=== PATIENT | female | born 1980 | race Caucasian/White ===

== ENCOUNTER 2017-07-07 16:31 | Inpatient (IN) ==
[2017-07-07] MEDS ORDERED: 0.9 % Sodium Chloride 1,000 ML IVC ONE (16:46)
[2017-07-07] MEDS ORDERED: Ketorolac 30 MG/ML VIAL IVP ONE (16:46)
[2017-07-07] MEDS ORDERED: Ondansetron 4 MG/2 ML VIAL IVP ONE (16:46)
--- NOTE | 2017-07-07 16:46 | Emergency Department Note ---
Disposition Clinical Impression: Biliary sludge, Abdominal pain, Transaminitis, Elevated bilirubin Disposition: Admitted As Inpatient Condition: Good Referrals: NONE,PCP [Primary Care Provider] - Forms: ED Satisfaction Letter, Work/School Release General Adult HPI - General Chief complaint: ED Abdominal Pain Stated complaint: abd pain,constipation,fever Time Seen by Provider: 07/07/17 16:40 Source: patient Limitations: no limitations - History of Present Illness Pain Scale: 6 - Related Data Allergies Allergy/AdvReac Type Severity Reaction Status Date / Time No Known Allergies Allergy Verified 07/07/17 16:39 Past Medical History - Past Medical History Medical history: Reports: hypertension, other - Social History Smoking Status: Current every day smoker Alcohol use: Reports: none Drug use: Reports: none Physical Exam - General Limitations: no limitations General appearance: in no apparent distress Course Vital Signs Temperature 98 F 07/07/17 16:37 Pulse Rate 130 07/07/17 16:37 Respiratory Rate 18 07/07/17 16:37 Blood Pressure 107/59 07/07/17 16:37 O2 Sat by Pulse Oximetry 95 07/07/17 16:37 Temperature 98 F 07/07/17 16:37 Pulse Rate 100 07/07/17 17:24 Respiratory Rate 20 07/07/17 17:24 Blood Pressure 107/71 07/07/17 17:24 O2 Sat by Pulse Oximetry 99 07/07/17 17:24 Oxygen Delivery Oxygen Delivery Room Air Medical Decision Making - Lab Data Result diagrams: 07/07/17 17:09 07/07/17 17:09 Lab Results 07/07/17 07/07/17 07/07/17 Range/Units 17:09 17:09 17:09 WBC 12.7 H (4.3-11.1) K/mcL RBC 2.99 L (3.82-4.97) M/mcL Hgb 10.8 L (11.5-15.4) g/dL Hct 32.1 L (35.3-44.9) % MCV 107.4 H (83.0-100.0) fL MCH 36.1 H (28.0-33.3) pg MCHC 33.6 (31.6-35.5) g/dL RDW 14.7 H (11.5-14.5) % Plt Count 350 (140-400) K/mcL MPV 10.3 (9.4-12.4) fL Immature Gran % 0.6 (0-4) % Seg Neutrophils % 73.0 % Lymphocytes % 18.5 % Monocytes % 7.4 % Eosinophils % 0.0 % Basophils % 0.5 % Neutrophils # 9.2 H (1.6-8.9) K/mcL Lymphocytes # 2.4 (0.6-4.6) K/mcL Monocytes # 0.9 (0.0-1.3) K/mcL Eosinophils # 0.0 (0.0-0.6) K/mcL Basophils # 0.1 (0.0-0.2) K/mcL Sodium 137 (136-145) mEq/L Potassium 4.4 (3.5-4.5) mEq/L Chloride 102 (98-109) mEq/L Carbon Dioxide 20 (19-29) mEq/L BUN 4 L (7-20) mg/dL Creatinine 0.63 (0.57-1.11) mg/dL Est GFR ( Amer) > 60 (> 60) Est GFR (Non-Af Amer) > 60 (> 60) BUN/Creatinine Ratio 6 (6-26) Glucose 137 H (70-99) mg/dL Calculated Osmolality 283 (280-300) Calcium 8.1 L (8.6-10.8) mg/dL Total Bilirubin 3.0 H (0.2-1.2) mg/dL Direct Bilirubin 1.6 H (0.0-0.5) mg/dL Indirect Bilirubin 1.4 H (0.0-1.2) mg/dL AST 236 H (5-34) Units/L ALT 31 (0-55) Units/L Alkaline Phosphatase 196 H (38-126) Units/L Serum Total Protein 7.9 (6.0-8.3) g/dL Albumin 2.4 L (3.5-5.0) g/dL Globulin 5.5 H (2.4-3.5) g/dL Albumin/Globulin Ratio 0.4 L (1.1-2.2) Lipase 23 (8-78) Units/L Beta HCG, Quant (0-4) mIU/ml Serum , Qual Negative (Negative) 07/07/17 Range/Units 17:09 WBC (4.3-11.1) K/mcL RBC (3.82-4.97) M/mcL Hgb (11.5-15.4) g/dL Hct (35.3-44.9) % MCV (83.0-100.0) fL MCH (28.0-33.3) pg MCHC (31.6-35.5) g/dL RDW (11.5-14.5) % Plt Count (140-400) K/mcL MPV (9.4-12.4) fL Immature Gran % (0-4) % Seg Neutrophils % % Lymphocytes % % Monocytes % % Eosinophils % % Basophils % % Neutrophils # (1.6-8.9) K/mcL Lymphocytes # (0.6-4.6) K/mcL Monocytes # (0.0-1.3) K/mcL Eosinophils # (0.0-0.6) K/mcL Basophils # (0.0-0.2) K/mcL Sodium (136-145) mEq/L Potassium (3.5-4.5) mEq/L Chloride (98-109) mEq/L Carbon Dioxide (19-29) mEq/L BUN (7-20) mg/dL Creatinine (0.57-1.11) mg/dL Est GFR ( Amer) (> 60) Est GFR (Non-Af Amer) (> 60) BUN/Creatinine Ratio (6-26) Glucose (70-99) mg/dL Calculated Osmolality (280-300) Calcium (8.6-10.8) mg/dL Total Bilirubin (0.2-1.2) mg/dL Direct Bilirubin (0.0-0.5) mg/dL Indirect Bilirubin (0.0-1.2) mg/dL AST (5-34) Units/L ALT (0-55) Units/L Alkaline Phosphatase (38-126) Units/L Serum Total Protein (6.0-8.3) g/dL Albumin (3.5-5.0) g/dL Globulin (2.4-3.5) g/dL Albumin/Globulin Ratio (1.1-2.2) Lipase (8-78) Units/L Beta HCG, Quant < 1 (0-4) mIU/ml Serum , Qual (Negative) Attestation Statement - Attestation Attestation: I examined this patient and my medical decision-making was reviewed with the Resident Physician. I agree with the documented findings, disposition and treatment plan as described except to the extent set forth below. [id number] time provided Patient complains of generalized abdominal pain. States she has not had a significant bowel movement "for months." Has tried [id number] remedies without relief. Seen in conjunction with Dr. Alfonso 19:36: Labs, CT image reviewed by me. Plan discussed by me with the resident physician. Call was placed to both the on-call surgeon and on-call GI covering physician. Patient to be admitted to the medicine service. The patient did attempt to leave to the emergency department to smoke. We told her this is not acceptable and she then returned to her room verbally upset
--- NOTE | 2017-07-07 16:56 | Emergency Department Note ---
Disposition Clinical Impression: Biliary sludge, Transaminitis, Elevated bilirubin Abdominal pain Qualifiers: Abdominal location: generalized Qualified Code(s): R10.84 - Generalized abdominal pain Disposition: Admitted As Inpatient Condition: Good Referrals: NONE,PCP [Primary Care Provider] - Forms: ED Satisfaction Letter, Work/School Release Abdominal Pain HPI - General Chief Complaint: ED Abdominal Pain Stated Complaint: abd pain,constipation,fever Time Seen by Provider: 07/07/17 16:40 Source: patient Mode of arrival: private vehicle Limitations: no limitations Nursing Notes Reviewed: Yes Vital Signs Reviewed: Yes - History of Present Illness HPI Narrative: 37-year-old female no reported history with a prior surgical history of umbilical hernia repair 17 years ago who presents to the ER due to abdominal pain and constipation. Patient states at first episode with her urine so she started taking cramping chills. She states that she has not had a normal bowel movement for the last 3-4 months and just has luisa when she defecates. She states that she became concerned was her gallbladder so she started drinking lemon water. This however did not help her symptoms and she continued to have abdominal pain. She denies any medical conditions, does not take any medications daily. Does not follow regularly with a primary care provider. Denies dysuria or hematuria. No history of bowel obstruction. No history of constipation. No other complaints. Pt Subjective Complaint: abdominal pain Onset (ago): month(s) Consistency: intermittent Location: diffuse Pain Severity: moderate Pain Scale: 6 Quality: aching Radiation: none Migration to: no migration Improves with: nothing Worsens with: nothing Associated symptoms: Reports: nausea, constipation. Denies: vomiting, diarrhea , dysuria Treatments prior to arrival: none - Related Data Allergies Allergy/AdvReac Type Severity Reaction Status Date / Time No Known Allergies Allergy Verified 07/07/17 16:39 All systems ED: reviewed and negative except as stated. Constitutional: Denies: fever Cardiovascular: Denies: chest pain Respiratory: Denies: dyspnea Gastrointestinal: Reports: abdominal pain, nausea, constipation. Denies: vomiting, diarrhea Musculoskeletal: Reports: back pain Abdominal Pain PMH - Past Medical History Medical history: Reports: hypertension, other Female Surgical History: Reports: , herniorrhaphy - Social History Smoking status: Current every day smoker Alcohol use: Reports: none Drug use: Reports: none Physical Exam - General Limitations: no limitations General appearance: alert, in no apparent distress - Head Head exam: atraumatic, normocephalic, normal inspection - Eye Eye exam: Present: normal appearance, EOMI - ENT ENT exam: normal exam - Neck Neck exam: Present: normal inspection, full ROM - Chest Chest inspection: Present: normal inspection, symmetric chest wall rise - Respiratory Respiratory exam: Present: normal lung sounds bilaterally - Cardiovascular Cardiovascular exam: Present: normal rhythm, tachycardia, normal heart sounds - Abdominal Exam Abdominal exam: Present: soft, distention (Patient has a moderately distended abdomen on exam. Nonrigid, no guarding.) - Extremities Exam Extremities exam: Present: normal inspection, full ROM - Expanded Upper Extremity Exam Shoulder exam: Present: normal inspection, full ROM Arm exam: Present: normal inspection, full ROM Elbow exam: Present: normal inspection, full ROM Forearm/Wrist exam: Present: normal inspection, full ROM Hand exam: Present: normal inspection, full ROM - Expanded Lower Extremity Exam Hip/Pelvis exam: Present: normal inspection, full ROM Upper leg exam: Present: normal inspection, full ROM Knee exam: Present: normal inspection, full ROM Lower leg exam: Present: normal inspection, full ROM Ankle exam: Present: normal inspection, full ROM Foot/toe exam: Present: normal inspection, full ROM - Neurological Exam Neurological exam: Present: alert, other (GCS 15. Nonfocal neurologic exam.) - Psychiatric Psychiatric exam: Present: normal affect, normal mood - Skin Skin exam: Present: warm, dry, intact, normal color Course Course Narrative: Patient seen and examined. Vital signs reviewed. Tachycardic here. We will obtain a CT scan of the abdomen and pelvis as well as labs and urinalysis. Patient given IV fluids, antiemetics and analgesics. - Reevaluation(s) Reevaluation #1: Discussed results of imaging and labs with the patient. She is in agreement with being admitted to the hospital. Requests something else for pain at this time. - Consultations Consultation #1: I spoke with the on-call surgeon Dr. Wiggins. Discussed patient's history labs and imaging. He will see the patient in consultation and recommends admission to the hospitalist with GI consultation as well. Consultation #2: I spoke with the on-call physician covering gastroenterology Dr Infante. Discussed the patient's history exam imaging and labs. He will conveyed to the oncoming watch parts grinder for consultation tomorrow. Vital Signs Temperature 98 F 07/07/17 16:37 Pulse Rate 130 07/07/17 16:37 Respiratory Rate 18 07/07/17 16:37 Blood Pressure 107/59 07/07/17 16:37 O2 Sat by Pulse Oximetry 95 07/07/17 16:37 Temperature 98 F 07/07/17 16:37 Pulse Rate 100 07/07/17 17:24 Respiratory Rate 20 07/07/17 17:24 Blood Pressure 107/71 07/07/17 17:24 O2 Sat by Pulse Oximetry 99 07/07/17 17:24 Oxygen Delivery Oxygen Delivery Room Air Abdominal Pain - MDM Narrative Medical decision making narrative: 37-year-old female presents to the ER due to intermittent abdominal pain for 3 months. She is distended on exam without peritoneal features. Afebrile here. CT scan demonstrates a dilated gallbladder with thickened wall. Also appears to have some enteritis by CT read. Slight leukocytosis of 12.7. She has an elevated total bilirubin, direct and indirect as well as an elevated AST. This case was discussed with the on-call surgeon as well as the on-call watch parts grinder. Patient admitted to the hospitalist service with GI and surgery consultation. - Lab Data Lab results reviewed: Yes I reviewed the patient's lab results. Result diagrams: 07/07/17 17:09 07/07/17 17:09 Lab Results 07/07/17 07/07/17 07/07/17 Range/Units 17:09 17:09 17:09 WBC 12.7 H (4.3-11.1) K/mcL RBC 2.99 L (3.82-4.97) M/mcL Hgb 10.8 L (11.5-15.4) g/dL Hct 32.1 L (35.3-44.9) % MCV 107.4 H (83.0-100.0) fL MCH 36.1 H (28.0-33.3) pg MCHC 33.6 (31.6-35.5) g/dL RDW 14.7 H (11.5-14.5) % Plt Count 350 (140-400) K/mcL MPV 10.3 (9.4-12.4) fL Immature Gran % 0.6 (0-4) % Seg Neutrophils % 73.0 % Lymphocytes % 18.5 % Monocytes % 7.4 % Eosinophils % 0.0 % Basophils % 0.5 % Neutrophils # 9.2 H (1.6-8.9) K/mcL Lymphocytes # 2.4 (0.6-4.6) K/mcL Monocytes # 0.9 (0.0-1.3) K/mcL Eosinophils # 0.0 (0.0-0.6) K/mcL Basophils # 0.1 (0.0-0.2) K/mcL Sodium 137 (136-145) mEq/L Potassium 4.4 (3.5-4.5) mEq/L Chloride 102 (98-109) mEq/L Carbon Dioxide 20 (19-29) mEq/L BUN 4 L (7-20) mg/dL Creatinine 0.63 (0.57-1.11) mg/dL Est GFR ( Amer) > 60 (> 60) Est GFR (Non-Af Amer) > 60 (> 60) BUN/Creatinine Ratio 6 (6-26) Glucose 137 H (70-99) mg/dL Calculated Osmolality 283 (280-300) Calcium 8.1 L (8.6-10.8) mg/dL Total Bilirubin 3.0 H (0.2-1.2) mg/dL Direct Bilirubin 1.6 H (0.0-0.5) mg/dL Indirect Bilirubin 1.4 H (0.0-1.2) mg/dL AST 236 H (5-34) Units/L ALT 31 (0-55) Units/L Alkaline Phosphatase 196 H (38-126) Units/L Serum Total Protein 7.9 (6.0-8.3) g/dL Albumin 2.4 L (3.5-5.0) g/dL Globulin 5.5 H (2.4-3.5) g/dL Albumin/Globulin Ratio 0.4 L (1.1-2.2) Lipase 23 (8-78) Units/L Beta HCG, Quant (0-4) mIU/ml Serum , Qual Negative (Negative) 07/07/17 Range/Units 17:09 WBC (4.3-11.1) K/mcL RBC (3.82-4.97) M/mcL Hgb (11.5-15.4) g/dL Hct (35.3-44.9) % MCV (83.0-100.0) fL MCH (28.0-33.3) pg MCHC (31.6-35.5) g/dL RDW (11.5-14.5) % Plt Count (140-400) K/mcL MPV (9.4-12.4) fL Immature Gran % (0-4) % Seg Neutrophils % % Lymphocytes % % Monocytes % % Eosinophils % % Basophils % % Neutrophils # (1.6-8.9) K/mcL Lymphocytes # (0.6-4.6) K/mcL Monocytes # (0.0-1.3) K/mcL Eosinophils # (0.0-0.6) K/mcL Basophils # (0.0-0.2) K/mcL Sodium (136-145) mEq/L Potassium (3.5-4.5) mEq/L Chloride (98-109) mEq/L Carbon Dioxide (19-29) mEq/L BUN (7-20) mg/dL Creatinine (0.57-1.11) mg/dL Est GFR ( Amer) (> 60) Est GFR (Non-Af Amer) (> 60) BUN/Creatinine Ratio (6-26) Glucose (70-99) mg/dL Calculated Osmolality (280-300) Calcium (8.6-10.8) mg/dL Total Bilirubin (0.2-1.2) mg/dL Direct Bilirubin (0.0-0.5) mg/dL Indirect Bilirubin (0.0-1.2) mg/dL AST (5-34) Units/L ALT (0-55) Units/L Alkaline Phosphatase (38-126) Units/L Serum Total Protein (6.0-8.3) g/dL Albumin (3.5-5.0) g/dL Globulin (2.4-3.5) g/dL Albumin/Globulin Ratio (1.1-2.2) Lipase (8-78) Units/L Beta HCG, Quant < 1 (0-4) mIU/ml Serum , Qual (Negative) - Radiology Data Radiology results reviewed: Yes I reviewed the patient's radiology results. Abdomen/Pelvis CT 07/07/17 16:47 IMPRESSION: 1. Distended gallbladder with sludge and possible stones. Small volume of pericholecystic fluid versus gallbladder wall thickening. Stranding in the right upper quadrant. Findings raise the possibility of acute cholecystitis. Alternative etiologies include pancreatitis and duodenitis. Further evaluation could be obtained with right upper quadrant ultrasound. 2. Suspected circumferential wall thickening of the duodenum and proximal jejunum as can be seen with enteritis. 3. Marked hepatomegaly. 4. Small volume of likely physiologic free fluid in the pelvis. D/ / Pranav Villanueva MD / Pranav Villanueva MD Interpreting Provider: Pranav Villanueva MD arisela - Alfredo Situation: Demographics, MOA Background: Presenting Complaint, Relevant PMH, Meds, & Allergies Assessment: Vital Signs, Course and respsone to treatment, Exam Concerns, Patient/Family Expectation, Pertinant Lab Results, Outstanding Labs Recommendation: Barrier(s) to disposition, Recommendation based on pending studies, treatments, or consults SMarisela Report Given to: Patricia Fuentes Repor Time: 19:09
[2017-07-07 17:19] LABS: Basophils # 0.1 K/mcL (0.0-0.2); Basophils % 0.5 %; Hematocrit 32.1 % (35.3-44.9); Hemoglobin 10.8 g/dL (11.5-15.4); Immature Granulocytes % 0.6 % (0-4); Lymphocytes # 2.4 K/mcL (0.6-4.6); Lymphocytes % 18.5 %; Mean Corpuscular HGB Conc 33.6 g/dL (31.6-35.5); Mean Corpuscular Hemoglobin 36.1 pg (28.0-33.3); Mean Corpuscular Volume 107.4 fL (83.0-100.0); Mean Platelet Volume 10.3 fL (9.4-12.4); Monocytes # 0.9 K/mcL (0.0-1.3); Monocytes % 7.4 %; Neutrophils # 9.2 K/mcL (1.6-8.9); Platelet Count 350 K/mcL (140-400); Red Blood Count 2.99 M/mcL (3.82-4.97); Red Cell Distribution Width 14.7 % (11.5-14.5)
[2017-07-07 17:37] LABS: Alanine Aminotransferase 31 Units/L (0-55); Albumin 2.4 g/dL (3.5-5.0); Albumin/Globulin Ratio 0.4 (1.1-2.2); Alkaline Phosphatase 196 Units/L (38-126); BUN/Creatinine Ratio 6 (6-26); Bilirubin,Indirect 1.4 mg/dL (0.0-1.2); Calcium 8.1 mg/dL (8.6-10.8); Carbon Dioxide 20 mEq/L (19-29); Chloride 102 mEq/L (98-109); Globulin 5.5 g/dL (2.4-3.5); Glucose 137 mg/dL (70-99); Lipase 23 Units/L (8-78); Osmolality,Calculated 283 (280-300); Potassium 4.4 mEq/L (3.5-4.5); Total Protein 7.9 g/dL (6.0-8.3); eGFR For African Americans > 60 (> 60); eGFR For Non-African Americans > 60 (> 60)
[2017-07-07 17:41] LABS: Aspartate Amino Transferase 236 Units/L (5-34); Bilirubin,Direct 1.6 mg/dL (0.0-0.5); Blood Urea Nitrogen 4 mg/dL (7-20)
[2017-07-07 17:43] LABS: Sodium 137 mEq/L (136-145)
[2017-07-07] MEDS ORDERED: *HR* HYDROmorphone (PF) 1 MG/ML SYRINGE IVP ONE (18:42)
--- NOTE | 2017-07-07 21:34 | Internal Med History&Physical ---
Date of Encounter: 07/07/17 Time of Encounter: 21:34 Assessment and Plan (1) Sepsis Current visit: Yes Status: Acute Patient meets sepsis criteria with tachycardia, leukocytosis and imaging showing cholecystitis. Start IV fluid hydration Blood pressure lactic acid is within normal limits Ciprofloxacin and Flagyl Send blood cultures Source of sepsis is GI, gallbladder ultrasound Qualifiers: Sepsis type: sepsis due to unspecified organism Qualified Code(s): A41.9 - Sepsis, unspecified organism (2) Cholecystitis Current visit: Yes Status: Acute Obtain liver ultrasound stat Surgery has been consulted Gastroenterology has been consulted Continue ciprofloxacin and Flagyl Keep patient nothing by mouth Monitor the LFTs (3) Enteritis Current visit: Yes Status: Acute This is according to her CAT scan. Patient has no diarrhea. Continue to monitor (4) Dilated cbd, acquired Current visit: Yes Status: Acute Surgery and GI on board. (5) Hepatomegaly Current visit: Yes Status: Acute Obtain liver imaging. Send hepatitis panel. Patient has peripheral stigmata of alcoholism but denies history of alcohol abuse. (6) Tobacco abuse Current visit: Yes Status: Chronic Nicotine replacement therapy when necessary. (7) Macrocytic anemia Current visit: Yes Status: Chronic Possibly secondary to alcohol abuse. . Send anemia workup. Internal Medicine - H&P: HPI Chief complaint: Abdominal distention Admitted From: Home Plans for Post Hospital Care: Home History of present illness: Ms. Fuentes is a 37 year old female with medical history of prior alcoholism, tobacco abuse. Presented to the ER with a 1 year history of progressive abdominal distention, said to have started suddenly about a year ago and progressively worsened with associated early satiety, constipation, and difficulty in breathing. She also reports chronic abdominal pain due to the distention. 3 months ago, patient started to have persistent nausea and vomiting daily. She reports that she thought initially this was due to GERD, however [id number] medications did not help. She reports associated 30 pound weight loss in 1 year. She denies is fatigability, chest pain, she does have bowel movements, but they are mostly leg pain falls. She denies fever or chills. She states vomitus is mostly recessively ingested nails but recently in the past week vomitus has been bilious and projectile. She also noted darkening in her urine that has persisted despite her attempting to drink lots of fluids. She denies alcohol intake, but reports heavy drinking when she was younger. She however stated that she has not had binging of alcohol in the past 5-10 years. She denies any home medications. She denies illicit drug use. She smokes heavily daily. On physical exam, she is tachycardic with a heart rate ranging from 100-113. She is slightly tachypneic with respiratory rate 18-20. Blood pressure is within normal limits. She is afebrile. She is cachectic, with parotid fullness. She has diffuse hyperpigmentation of her skin, she reports this is chronic. She has slight scleral icterus. Her conjunctiva is not pale. Her chest is clear to auscultation bilaterally. Heart sounds are S1-S2 and regular , with no murmurs gallops or rubs. Abdomen is distended and hard with massive hepatomegaly, liver feels small and is nontender. Amo's sign is negative. Bowel sounds are present in all quadrants. She has no pedal edema. Labs and imaging reviewed Leukocytosis with left shift, macrocytic anemia MCV 107, hypoglycemia, transaminitis AST 236, hyperbilirubinemia lipase is normal. Abdomen and pelvis CT reveals distended gallbladder with sludge, cholelithiasis, pericholecystic fluid and possible pancreatitis and enteritis. She also has marked hepatomegaly. Past Med Surg Social Fam HX - Past Medical History Medical history: hypertension Psychiatric history: anxiety - Past Surgical History Surgical History: - Social History Smoking Status: Current every day smoker Alcohol use: occasionally Drug use: none - Family History Mother Living Status: Still Living Hx Family Cardiac Disorders: Yes (Heart disease) Hx Family Respiratory Disorders: Yes (COPD) Hx Family Cancer: Yes Father Living Status: Cause of : Aneurysm Hx Family Cancer: Yes Internal Medicine - H&P: Meds 3 Allergy/AdvReac Type Severity Reaction Status Date / Time No Known Allergies Allergy Verified 07/07/17 16:39 All Systems PM: A 10-system review of systems was performed and is negative for pertinent findings except as documented above in the HPI. - Constitutional Constitutional: as per HPI - EENT Eyes: as per HPI Ears: as per HPI Nose, mouth and throat: as per HPI - Breasts Breasts: as per HPI - Cardiovascular Cardiovascular ROS IM: as per HPI - Respiratory Respiratory: as per HPI - Gastrointestinal Gastrointestinal: as per HPI - Genitourinary Genitourinary: as per HPI - Musculoskeletal Musculoskeletal ROS IM: as per HPI - Integumentary Integumentary IM: as per HPI - Neurological Neurological ROS: as per HPI - Hematologic/Lymphatic Hematologic/Lymphatic: as per HPI - Constitutional Vitals: Temp Pulse Resp BP Pulse Ox 97.8 F 117 14 107/73 97 07/07/17 20:41 07/07/17 20:41 07/07/17 20:41 07/07/17 20:41 07/07/17 20:41 she is tachycardic with a heart rate ranging from 100-113. She is slightly tachypneic with respiratory rate 18-20. Blood pressure is within normal limits. She is afebrile. She is cachectic, with parotid fullness. She has diffuse hypopigmentation of her skin, she reports this is chronic. She has slight scleral icterus. Her conjunctiva is not pale. Her chest is clear to auscultation bilaterally. Heart sounds are S1-S2 and regular, with no murmurs gallops or rubs. Abdomen is distended and hard with massive hepatomegaly, liver feels small and is nontender. Mao's sign is negative. Bowel sounds are present in all quadrants. She has no pedal edema. Internal Med - H&P Results - Labs CBC & Chem 7: 07/07/17 17:09 07/07/17 17:09
[2017-07-07] MEDS ORDERED: Naloxone 0.4 MG/ML INJ IVP PRN (21:35)
[2017-07-07] MEDS ORDERED: Ibuprofen 400 MG TABLET PO PRN (21:35)
[2017-07-07] MEDS ORDERED: Ondansetron 4 MG/2 ML VIAL IVP PRN (21:35)
[2017-07-07] MEDS ORDERED: *HR* HYDROmorphone (PF) 1 MG/ML SYRINGE IVP PRN (21:35)
[2017-07-07] MEDS: 0.9 % Sodium Chloride 1,000 ML IVC SCH (21:55)
[2017-07-07] MEDS: *HR* Heparin 5,000 UNIT/ML VIAL SQ SCH (21:56)
[2017-07-07] MEDS: MetroNIDAZOLE 500 MG/100 ML 500 MG/100 ML BAG IVPB SCH (23:57)
[2017-07-08] MEDS ORDERED: 0.9 % Sodium Chloride 500 ML IV ONE (01:30)
[2017-07-08] MEDS: *HR* OxyCODONE Immed Rel 5 MG TABLET PO PRN ×3 (02:27→22:22)
[2017-07-08] MEDS: 0.9 % Sodium Chloride 1,000 ML IVC SCH ×4 (02:27→15:59)
[2017-07-08 04:47] LABS: Basophils % 0.5 %; Hematocrit 26.2 % (35.3-44.9); Immature Granulocytes % 0.4 % (0-4); Lymphocytes # 1.5 K/mcL (0.6-4.6); Lymphocytes % 20.2 %; Mean Corpuscular HGB Conc 32.4 g/dL (31.6-35.5); Mean Corpuscular Volume 107.8 fL (83.0-100.0); Mean Platelet Volume 9.6 fL (9.4-12.4); Monocytes # 0.7 K/mcL (0.0-1.3); Monocytes % 9.9 %; Neutrophils # 5.1 K/mcL (1.6-8.9); Platelet Count 225 K/mcL (140-400); Red Blood Count 2.43 M/mcL (3.82-4.97); Red Cell Distribution Width 14.6 % (11.5-14.5)
[2017-07-08 04:48] LABS: Hemoglobin 8.5 g/dL (11.5-15.4)
[2017-07-08 05:04] LABS: Hemoglobin A1C 4.3 %
[2017-07-08 05:08] LABS: Alanine Aminotransferase 24 Units/L (0-55); Albumin/Globulin Ratio 0.5 (1.1-2.2); Alkaline Phosphatase 157 Units/L (38-126); Aspartate Amino Transferase 166 Units/L (5-34); BUN/Creatinine Ratio 9 (6-26); Bilirubin,Direct 1.9 mg/dL (0.0-0.5); Bilirubin,Indirect 0.8 mg/dL (0.0-1.2); Calcium 6.9 mg/dL (8.6-10.8); Carbon Dioxide 22 mEq/L (19-29); Chloride 106 mEq/L (98-109); Glucose 96 mg/dL (70-99); Osmolality,Calculated 277 (280-300); Potassium 3.6 mEq/L (3.5-4.5); Sodium 135 mEq/L (136-145); eGFR For African Americans > 60 (> 60); eGFR For Non-African Americans > 60 (> 60)
[2017-07-08 05:17] LABS: Bilirubin,Total 2.7 mg/dL (0.2-1.2); Blood Urea Nitrogen 4 mg/dL (7-20)
[2017-07-08] MEDS: *HR* Heparin 5,000 UNIT/ML VIAL SQ SCH ×3 (05:24→20:53)
[2017-07-08 05:25] LABS: Hepatitis B Surface Antigen Nonreactive (Nonreactive)
[2017-07-08 06:23] LABS: Folate 2.9 ng/mL (7.0-31.4)
[2017-07-08] MEDS ORDERED: Folic Acid 1 MG in D5% in Water 50 ML IVPB ONE (07:45)
[2017-07-08] MEDS ORDERED: Ketorolac 30 MG/ML VIAL IVP PRN ×3 (07:48→11:27)
[2017-07-08] MEDS ORDERED: *HR* HYDROmorphone (PF) 1 MG/ML SYRINGE IVP PRN (07:49)
[2017-07-08] MEDS: MetroNIDAZOLE 500 MG/100 ML 500 MG/100 ML BAG IVPB SCH ×3 (08:05→22:23)
--- NOTE | 2017-07-08 09:10 | General Surgery Consult Note ---
<Petty Solares - Last Filed: 07/08/17 16:36> Date of Encounter: 07/08/17 Time of Encounter: 07:45 Assessment and Plan (1) Abdominal pain Status: Acute Worsening band like abdominal pain worsening with distension over the past week with jaundice present. CT abdomen showed dilated common bile duct and duodenitis with gallbladder with distension, sludge, and possible stones, mild stranding in the right upper quadrant about the proximal duodenum and pancreatic head. Hepatomegaly present. RUQ US showed 16.8cm liver. gallstone and gallbladder sludge with gallbladder wall thickening,pericholecystic fluid and a positive sonographic Mao's sign. Tbili elevated to 3.0, Alkaline phosphatase elevated 196, and AST elevated 166 secondary to increase pressure in the bile duct system possible obstruction lower in the biliary system. Hepatitis C antibody positive. Consulted GI and awaiting GI recommendations before considering surgical intervention. Qualifiers: Abdominal location: generalized Qualified Code(s): R10.84 - Generalized abdominal pain (2) Elevated bilirubin Status: Acute patient has hx of alcohol abuse and CT showing hepatomegaly. Elevated total bilirubin of 3.0, 2.7. Direct bili elevated 1.6, 1.9. With associated elevated alkaline phosphatase at 196, 157. Liver US showed Gallstone and gallbladder sludge with gallbladder wall thickening,pericholecystic fluid and a positive sonographic Mao's sign.Will consult GI for possible MRCP. (3) Hepatomegaly Status: Acute History of prior alcoholism without binging of alcohol in the past 5-10 years. but does still drink occasionally. Liver ultrasound showed mild enlargement of liver at 16.8cm. (4) History of alcohol abuse Status: Acute History of prior alcoholism without binging of alcohol in the past 5-10 years. but does still drink occasionally. History of Present Illness Consult date: 07/08/17 Requesting physician: Morris Judd History of present illness: Patient is a 37-year-old female with past medical history of prior alcoholism presented to the ER complaining of progressive abdominal distention, diffuse pain, and darkening of urine. She has had one year of progressive worsening of early satiety, constipation, and 30lb weight loss which progressed to daily N/V about 3 months ago. Patient states that she vomits once every morning for the past 8 months. After vomitting she feels better and is able to eat without N/V later in the day. Vomit is non-bloody. She has noticed darkening of her urine for the past 1 month and this tried hydrating more but has seen increasing darkness. For the past week pain is been worsening she describes the pain as a tight band around her entire abdomen that wraps around and radiates down her midback. Past Med Surg Social Fam HX - Past Medical History Medical history: hypertension Psychiatric history: anxiety - Past Surgical History Surgical History: - Social History Smoking Status: Current every day smoker Alcohol use: occasionally Drug use: none - Family History Mother Living Status: Still Living Hx Family Cardiac Disorders: Yes (Heart disease) Hx Family Respiratory Disorders: Yes (COPD) Hx Family Cancer: Yes Father Living Status: Cause of : Aneurysm Hx Family Cancer: Yes Medications and Allergies 3 Allergy/AdvReac Type Severity Reaction Status Date / Time No Known Allergies Allergy Verified 07/07/17 16:39 Review of Systems All systems PM: A 10-system review of systems was performed and is negative for pertinent findings except as documented above in the HPI. General Surgery Exam Initial Vital Signs Temp Pulse Resp BP Pulse Ox 98 F 130 18 107/59 95 07/07/17 16:37 07/07/17 16:37 07/07/17 16:37 07/07/17 16:37 07/07/17 16:37 - General physical appearance well developed, well nourished, moderate pain - Eyes negative: icteric - Respiratory normal expansion, normal respiratory effort, clear to auscultation - Cardiovascular Cardiovascular exam: Present: RRR, NR. Absent: murmurs, rubs, gallop - Abdomen Abdomen general surgery: Present: bowel sounds present, soft, tympanic, distended Abdominal Tenderness: Present: diffusely - Integumentary Integumentary general surgery: Present: warm and dry, other (mild jaundice face and upper extremitites) - Neurologic Present: normal coordination, normal sensation - Musculoskeletal Present: other (no peripheral edema) - Psychiatric Psychiatric general surgery: Present: A&Ox3, appropriate Exam Initial Vital Signs Temp Pulse Resp BP Pulse Ox 98 F 130 18 107/59 95 07/07/17 16:37 07/07/17 16:37 07/07/17 16:37 07/07/17 16:37 07/07/17 16:37 Results - Labs 07/08/17 04:19 07/08/17 04:19 Abnormal lab results RBC 2.43 M/mcL (3.82-4.97) L 07/08/17 04:19 Hgb 8.5 g/dL (11.5-15.4) L D 07/08/17 04:19 Hct 26.2 % (35.3-44.9) L 07/08/17 04:19 MCV 107.8 fL (83.0-100.0) H 07/08/17 04:19 MCH 35.0 pg (28.0-33.3) H 07/08/17 04:19 RDW 14.6 % (11.5-14.5) H 07/08/17 04:19 Sodium 135 mEq/L (136-145) L 07/08/17 04:19 BUN 4 mg/dL (7-20) L 07/08/17 04:19 Creatinine 0.45 mg/dL (0.57-1.11) L 07/08/17 04:19 POC Glucose 90 (58-89) H 07/08/17 05:21 Calculated Osmolality 277 (280-300) L 07/08/17 04:19 Calcium 6.9 mg/dL (8.6-10.8) L 07/08/17 04:19 Total Bilirubin 2.7 mg/dL (0.2-1.2) H 07/08/17 04:19 Direct Bilirubin 1.9 mg/dL (0.0-0.5) H 07/08/17 04:19 AST 166 Units/L (5-34) H 07/08/17 04:19 Alkaline Phosphatase 157 Units/L (38-126) H 07/08/17 04:19 Albumin 2.0 g/dL (3.5-5.0) L 07/08/17 04:19 Globulin 4.0 g/dL (2.4-3.5) H 07/08/17 04:19 Albumin/Globulin Ratio 0.5 (1.1-2.2) L 07/08/17 04:19 Vitamin B12 1062 pg/mL (213-816) H 07/08/17 04:19 Folate 2.9 ng/mL (7.0-31.4) L 09/25/17 04:19 Diabetes panel 07/08/17 07/08/17 Range/Units 04:19 04:19 Sodium 135 L (136-145) mEq/L Potassium 3.6 (3.5-4.5) mEq/L Chloride 106 (98-109) mEq/L Carbon Dioxide 22 (19-29) mEq/L BUN 4 L (7-20) mg/dL Creatinine 0.45 L (0.57-1.11) mg/dL Glucose 96 (70-99) mg/dL Hemoglobin A1c 4.3 ( - 5.6) % Calcium 6.9 L (8.6-10.8) mg/dL AST 166 H (5-34) Units/L ALT 24 (0-55) Units/L Alkaline Phosphatase 157 H (38-126) Units/L Albumin 2.0 L (3.5-5.0) g/dL Calcium panel 07/08/17 Range/Units 04:19 Calcium 6.9 L (8.6-10.8) mg/dL Albumin 2.0 L (3.5-5.0) g/dL Pituitary panel 07/08/17 Range/Units 04:19 Sodium 135 L (136-145) mEq/L Potassium 3.6 (3.5-4.5) mEq/L Chloride 106 (98-109) mEq/L Carbon Dioxide 22 (19-29) mEq/L BUN 4 L (7-20) mg/dL Creatinine 0.45 L (0.57-1.11) mg/dL Glucose 96 (70-99) mg/dL Calcium 6.9 L (8.6-10.8) mg/dL Adrenal panel 07/08/17 Range/Units 04:19 Sodium 135 L (136-145) mEq/L Potassium 3.6 (3.5-4.5) mEq/L Chloride 106 (98-109) mEq/L Carbon Dioxide 22 (19-29) mEq/L BUN 4 L (7-20) mg/dL Creatinine 0.45 L (0.57-1.11) mg/dL Glucose 96 (70-99) mg/dL Calcium 6.9 L (8.6-10.8) mg/dL Total Bilirubin 2.7 H (0.2-1.2) mg/dL AST 166 H (5-34) Units/L ALT 24 (0-55) Units/L Alkaline Phosphatase 157 H (38-126) Units/L Albumin 2.0 L (3.5-5.0) g/dL All other labs normal. Consult Discharge Plan - Plan Referrals: NONE,PCP [Primary Care Provider] - <Rodrigo Wigginsn Mag - Last Filed: 07/09/17 14:06> Date of Encounter: 07/08/17 Review of Systems All systems PM: A 10-system review of systems was performed and is negative for pertinent findings except as documented above in the HPI. General Surgery Exam Initial Vital Signs Temp Pulse Resp BP Pulse Ox 98 F 130 18 107/59 95 07/07/17 16:37 07/07/17 16:37 07/07/17 16:37 07/07/17 16:37 07/07/17 16:37 Exam Initial Vital Signs Temp Pulse Resp BP Pulse Ox 98 F 130 18 107/59 95 07/07/17 16:37 07/07/17 16:37 07/07/17 16:37 07/07/17 16:37 07/07/17 16:37 Results - Labs 07/09/17 06:03 07/09/17 06:03 Abnormal lab results RBC 2.43 M/mcL (3.82-4.97) L 07/09/17 06:03 Hgb 8.8 g/dL (11.5-15.4) L 07/09/17 06:03 Hct 26.8 % (35.3-44.9) L 07/09/17 06:03 MCV 110.3 fL (83.0-100.0) H 07/09/17 06:03 MCH 36.2 pg (28.0-33.3) H 07/09/17 06:03 RDW 14.6 % (11.5-14.5) H 07/09/17 06:03 Macrocytosis Present (Not Present) A 07/09/17 06:03 Potassium 3.0 mEq/L (3.5-4.5) L 07/09/17 06:03 BUN 4 mg/dL (7-20) L 07/09/17 06:03 Creatinine 0.54 mg/dL (0.57-1.11) L 07/09/17 06:03 POC Glucose 104 (58-89) H 07/09/17 05:30 Calcium 6.7 mg/dL (8.6-10.8) L 07/09/17 06:03 Total Bilirubin 3.0 mg/dL (0.2-1.2) H 07/09/17 06:03 Direct Bilirubin 1.9 mg/dL (0.0-0.5) H 07/08/17 04:19 AST 152 Units/L (5-34) H 07/09/17 06:03 Alkaline Phosphatase 152 Units/L (38-126) H 07/09/17 06:03 Serum Total Protein 5.8 g/dL (6.0-8.3) L 07/09/17 06:03 Albumin 1.9 g/dL (3.5-5.0) L 07/09/17 06:03 Globulin 3.9 g/dL (2.4-3.5) H 07/09/17 06:03 Albumin/Globulin Ratio 0.5 (1.1-2.2) L 07/09/17 06:03 Vitamin B12 1062 pg/mL (213-816) H 07/08/17 04:19 Folate 2.9 ng/mL (7.0-31.4) L 07/08/17 04:19 Urine Color [place] (Yellow) A 07/07/17 09:00 Urine Clarity Cloudy (Clear) A 07/07/17 09:00 Urine Nitrite Positive (Negative) A 07/07/17 09:00 Urine Bilirubin Moderate (Negative) H 07/07/17 09:00 Urine Urobilinogen 4.0 mg/dL (Normal) H 07/07/17 09:00 Ur Leukocyte Esterase Trace (Negative) H 07/07/17 09:00 Urine Microscopic RBC 3-5 per hpf (0-3) H 07/07/17 09:00 Urine Microscopic WBC 5-15 per hpf (0-3) H 07/07/17 09:00 Ur Squamous Epith Cells Many per lpf (None-Few) H 07/07/17 09:00 Hyaline Casts Moderate per lpf (None-Few) H 07/07/17 09:00 Ur Culture Indicated? YES (NO) A 07/07/17 09:00 Hepatitis C Ab Screen Reactive (Nonreactive) H 07/08/17 04:19 Diabetes panel 07/09/17 Range/Units 06:03 Sodium 137 (136-145) mEq/L Potassium 3.0 L (3.5-4.5) mEq/L Chloride 107 (98-109) mEq/L Carbon Dioxide 20 (19-29) mEq/L BUN 4 L (7-20) mg/dL Creatinine 0.54 L (0.57-1.11) mg/dL Glucose 98 (70-99) mg/dL Calcium 6.7 L (8.6-10.8) mg/dL AST 152 H (5-34) Units/L ALT 22 (0-55) Units/L Alkaline Phosphatase 152 H (38-126) Units/L Albumin 1.9 L (3.5-5.0) g/dL Calcium panel 07/09/17 Range/Units 06:03 Calcium 6.7 L (8.6-10.8) mg/dL Albumin 1.9 L (3.5-5.0) g/dL Pituitary panel 07/09/17 Range/Units 06:03 Sodium 137 (136-145) mEq/L Potassium 3.0 L (3.5-4.5) mEq/L Chloride 107 (98-109) mEq/L Carbon Dioxide 20 (19-29) mEq/L BUN 4 L (7-20) mg/dL Creatinine 0.54 L (0.57-1.11) mg/dL Glucose 98 (70-99) mg/dL Calcium 6.7 L (8.6-10.8) mg/dL Adrenal panel 07/09/17 Range/Units 06:03 Sodium 137 (136-145) mEq/L Potassium 3.0 L (3.5-4.5) mEq/L Chloride 107 (98-109) mEq/L Carbon Dioxide 20 (19-29) mEq/L BUN 4 L (7-20) mg/dL Creatinine 0.54 L (0.57-1.11) mg/dL Glucose 98 (70-99) mg/dL Calcium 6.7 L (8.6-10.8) mg/dL Total Bilirubin 3.0 H (0.2-1.2) mg/dL AST 152 H (5-34) Units/L ALT 22 (0-55) Units/L Alkaline Phosphatase 152 H (38-126) Units/L Albumin 1.9 L (3.5-5.0) g/dL All other labs normal. - Attending Attestation I examined this patient and my medical decision-making was reviewed with the Resident Physician. I agree with the documented findings, disposition and treatment plan as described except to the extent set forth below. The patient was seen and evaluated on morning rounds with the resident. CAT scan is markedly abnormal with duodenitis and proximal jejunitis. There is also diffuse hepatic enlargement as well as gallbladder dilatation with sludge. The laboratory testing suggests new diagnosis of hepatitis C. We will continue to follow along with you and coordinate surgical timing if we can isolate the pain syndrome to the gallbladder. Sancho Wiggins MD FACS
[2017-07-08 10:29] LABS: Bilirubin,Urine Moderate (Negative); Blood,Urine Negative (Negative); Clarity,Urine Cloudy (Clear); Color,Urine Orange (Yellow); Glucose,Urine (UA) Normal (Normal); Ketones,Urine Negative (Negative); Leukocyte Esterase,Urine Trace (Negative); Nitrite,Urine Positive (Negative); Protein,Urine Trace mg/dL (Neg-Trace); Specific Gravity,Urine 1.023 (1.010-1.025)
[2017-07-08 10:31] LABS: Hyaline Casts,Urine Moderate per lpf (None-Few); Squamous Epithelial Cell,Urine Many per lpf (None-Few)
[2017-07-08 10:39] LABS: Hepatitis C Virus Antibody Reactive (Nonreactive)
[2017-07-08 10:58] LABS: Bacteria,Urine Few per hpf (None-Few)
[2017-07-08] MEDS: *HR* HYDROmorphone (PF) 1 MG/ML SYRINGE IVP PRN ×2 (12:54→18:46)
--- NOTE | 2017-07-08 15:19 | Gastroenterology Consult Note ---
<Kathrin Valentine - Last Filed: 07/09/17 08:15> Date of Encounter: 07/09/17 Time of Encounter: 15:12 - Assessment and plan (1) Hepatitis C antibody positive in blood Status: Acute Assessment and plan: Risk factor includes previous home tattoo. Denies previous IV drug use. Liver ultrasound with normal echogenecity and 16.8 cm measurement. Hepatitis C antibody positive. Will check hepatitis C viral load and genotype. Further recommendations to follow. (2) Transaminitis Status: Acute Assessment and plan: Elevated AST and bilirubin. In setting of gallbladder sludge and gallstone with evidence of gallbladder wall thickening and pericholecystic fluid on both CT and liver ultrasound. Surgery following. Will plan on MRCp to evaluate duct and look for possible obstruction. Further decisions on gallbladder removal deferred to surgery team. - Time Spent With Patient Total time spent is greater than 50% in coordination of care (as documented) at patient's floor/unit and/or counseling patient: GI History of Present Illness - Data of Consult Requesting Physician: Dm Elam MD - Consult Narrative Reason for consult: hepatomegaly History of present illness: Ms. Fuentes is a 37 year old female who is being evaluated for abdominal pain and elevated liver enzymes. She states that about 1 year ago she was no longer on insurance and had to stop her PPI and has been taking over the counter zantac. She has had increasing issues with heartburn but this is separate and unlike the pain she has been experiencing over the last few months. She states about 3-4 months ago she was feeling "sick" and she went to [place] and was diagnosed with pneumonia. At that time she was running a fever. She was given a z-pack, prednisone and an inhaler. She reports she finished those and then began to feel better. However about 2 months ago she began to experience an acute worsening of abdominal pain which she located in her epigastric area wrapping in a band like fashion around to her back. She describes this as a squeezing feeling. This worsened suddenly about 1 week ago and began being accompanied by an occasional right sided stabbing pain. She reports that about 2 weeks ago she started noticing an acute distension of her abdomen as well, prior to that there was no issues. She has noticed some darker coloration to her urine over the last few months, but denies any change to her stool. Reports subjective fever over last week which will come and go, unknown high temperature as she did not monitor it. She reports that she was a previous heavy alcohol drinker, she was a heavy drinker in high school and college and preferred vodka. States that since that time she is more of an occasional social drinker. Last time she was drunk was at [employer] last year. She has tried to drink 2 times in last 2 months and has felt worse with drinking both times, only tried a few shots. She denies any travel or camping trips. She does report chronic back pain for which she will occasionally take alleve, has taken up to 5 pills in one day previously. She will also take tylenol, is unclear about amount of tylenol she takes per day. Denies any previous or current IV drug use. Does have a history of home tattoo given by her brother, was told he used a new needle, 2 years previously. No family history of liver issues, no family history of autoimmune diseases. Past Med Surg Social Fam HX - Past Medical History Medical history: hypertension Psychiatric history: anxiety - Past Surgical History Surgical History: - Social History Smoking Status: Current every day smoker Alcohol use: occasionally Drug use: none - Family History Mother Living Status: Still Living Hx Family Cardiac Disorders: Yes (Heart disease) Hx Family Respiratory Disorders: Yes (COPD) Hx Family Cancer: Yes Father Living Status: Cause of : Aneurysm Hx Family Cancer: Yes - Gastrointestinal Gastrointestinal: Present: abdominal pain, constipation, heartburn, nausea, other (distended abdomen). Absent: diarrhea, hematemesis - Constitutional Constitutional: fever(s) (subjective at home) - EENT Ears: Absent: tinnitus Nose, mouth and throat: Absent: dysphagia, hoarseness, sore throat - Cardiovascular Cardiovascular ROS: Absent: chest pain, irregular heart rhythm - Respiratory Respiratory IM: Absent: cough, dyspnea, wheezing - Genitourinary Genitourinary: Present: change in color (darker). Absent: Urinary frequency - Neurological ROS Neurological GI: Absent: confusion, frequent falls, weakness - Hematologic/Lymphatic Hematologic/Lymphatic pediatric: Present: easy bleeding - Musculoskeletal Musculoskeletal ROS GI: Present: back pain (chronic) - Integumentary Integumentary GI: Absent: jaundice, pruritis, rash - Constitutional Vitals: Temp Pulse Resp BP Pulse Ox 98.3 F 83 14 103/70 96 07/08/17 11:04 07/08/17 11:04 07/08/17 11:04 07/08/17 11:04 07/08/17 11:04 General appearance: Present: cooperative, A&O X 3, pleasant, no acute distress, answers questions appropriately - Head Head exam: Present: atraumatic, normocephalic - Eye Eye exam: Present: PERRL, scleral icterus (mild peripheral) - ENT ENT exam: Present: mucous membranes moist - Neck Neck exam general surgery: Present: supple - Respiratory Respiratory exam: Present: CTAB. Absent: rales, rhonchi, stridor, wheezes - Cardiovascular Cardiovascular exam: Present: RRR, +S1, +S2. Absent: diastolic murmur, systolic murmur - GI/Abdominal GI/Abdominal exam: Present: distended, hepatomegaly (liver palpable in abdomen ) , hypoactive bowel sounds, soft, tenderness (diffusely tender, tender to palpation of palpable liver). Absent: guarding - Extremities Exam Extremities exam: Present: normal capillary refill, warm. Absent: cyanotic - Skin Additional comments: numerous tattos observed over low back, left side and upper chest Results - Labs CBC & Chem 7: 07/09/17 06:03 07/09/17 06:03 Labs: Last Result Calcium 6.9 mg/dL (8.6-10.8) L 07/08/17 04:19 Vitamin B12 1062 pg/mL (213-816) H 07/08/17 04:19 Folate 2.9 ng/mL (7.0-31.4) L 07/08/17 04:19 Entire Visit Hgb 8.5 g/dL (11.5-15.4) L D 07/08/17 04:19 Hct 26.2 % (35.3-44.9) L 07/08/17 04:19 Total Bilirubin 2.7 mg/dL (0.2-1.2) H 07/08/17 04:19 AST 166 Units/L (5-34) H 07/08/17 04:19 ALT 24 Units/L (0-55) 07/08/17 04:19 Lipase 23 Units/L (8-78) 07/07/17 17:09 Folate 2.9 ng/mL (7.0-31.4) L 07/08/17 04:19 - Impressions Impressions Liver Ultrasound 07/08/17 12:00 IMPRESSION: 1. Gallstone and gallbladder sludge with gallbladder wall thickening, pericholecystic fluid and a positive sonographic Mao's sign. Findings likely reflect acute cholecystitis. 2. Small amount of perihepatic ascites. 3. Right pleural effusion. D/ / Laly Galindo / Laly Galindo Interpreting Provider: Laly Galindo Consult Discharge Plan - Plan Referrals: NONE,PCP [Primary Care Provider] - <Rick Thacker - Last Filed: 07/16/17 10:52> Date of Encounter: 07/08/17 Time of Encounter: 18:00 - Time Spent With Patient Total time spent is greater than 50% in coordination of care (as documented) at patient's floor/unit and/or counseling patient: GI History of Present Illness - Data of Consult Requesting Physician: Dm Elam MD - Consult Narrative History of present illness: Ms. Fuentes is a 37 year old female - Constitutional Vitals: Temp Pulse Resp BP Pulse Ox 98.3 F 83 14 103/70 96 07/08/17 11:04 07/08/17 11:04 07/08/17 11:04 07/08/17 11:04 07/08/17 11:04 Results - Labs CBC & Chem 7: 07/09/17 06:03 07/09/17 06:03 Labs: Last Result Calcium 6.9 mg/dL (8.6-10.8) L 07/08/17 04:19 Vitamin B12 1062 pg/mL (213-816) H 07/08/17 04:19 Folate 2.9 ng/mL (7.0-31.4) L 07/08/17 04:19 Entire Visit Hgb 8.5 g/dL (11.5-15.4) L D 07/08/17 04:19 Hct 26.2 % (35.3-44.9) L 07/08/17 04:19 Total Bilirubin 2.7 mg/dL (0.2-1.2) H 07/08/17 04:19 AST 166 Units/L (5-34) H 07/08/17 04:19 ALT 24 Units/L (0-55) 07/08/17 04:19 Lipase 23 Units/L (8-78) 07/07/17 17:09 Folate 2.9 ng/mL (7.0-31.4) L 07/08/17 04:19 - Impressions Impressions Liver Ultrasound 07/08/17 12:00 IMPRESSION: 1. Gallstone and gallbladder sludge with gallbladder wall thickening, pericholecystic fluid and a positive sonographic Mao's sign. Findings likely reflect acute cholecystitis. 2. Small amount of perihepatic ascites. 3. Right pleural effusion. D/ / Laly Galindo / Laly Galindo Interpreting Provider: Laly Galindo - Attending Attestation I examined this patient and my medical decision-making was reviewed with the Resident Physician. I agree with the documented findings, disposition and treatment plan as described except to the extent set forth below. Patient with abdominal pain along with swelling and abnormal LFTs per patient abdominal pain is forthe last nearly [address] with hepatomegaly and gallbladder sludge but the CBD is not dilated. Does has positive hepatitis C with no previous history. A lot of the findings can be explained with acute hepatitis C but need to rule out Budd-Chiari syndrome and also will need workup for CBD obstruction with MRCP and if negative then we will do further workup for her abnormal LFTs including autoimmune and hereditary/metabolic causes. Patient denies drinking per patient last 2 months she hardly drank only two time. Denies history of drugs.
--- NOTE | 2017-07-08 16:41 | Internal Med Progress Note ---
Date of Encounter: 07/08/17 Time of Encounter: 09:20 - Assessment and plan (1) Sepsis Current Visit: Yes Status: Acute Assessment and plan: Possibly from acute cholecystitis. Clinically improving. Has not had any fever today. Heart rate improving. Continue current antibiotics. Continue IV hydration. Qualifiers: Sepsis type: sepsis due to unspecified organism Qualified Code(s): A41.9 - Sepsis, unspecified organism (2) Cholecystitis Current Visit: Yes Status: Acute Assessment and plan: Based on CT scan and abdominal ultrasound findings. Surgery and GI consulted. Will follow recommendations. Treat nausea and pain with intravenous antiemetics and pain medications as needed. Height is for complications due to use of intravenous narcotic medications. On ciprofloxacin and Flagyl. liver ultrasound suggests presence of cholecystitis. GI recommends MRCP. Will obtain this study. CBD within normal limits. (3) Enteritis Current Visit: Yes Status: Acute Assessment and plan: Not having any diarrhea. Could be related to gallbladder and bile duct disease (4) Hepatomegaly Current Visit: Yes Status: Acute Assessment and plan: Per CT. Liver ultrasound shows normal-sized liver. With normal echogenicity. (5) Macrocytic anemia Current Visit: Yes Status: Chronic Assessment and plan: Hemoglobin 8.5 today. We will patient does have low folic acid levels. We will replace intravenously. (6) Tobacco abuse Current Visit: Yes Status: Chronic - Subjective Interval history: Patient continues to have severe right upper quadrant abdominal pain along with nausea. No diarrhea. Feels very hungry and is asking to eat. Denies any fever or chills last night. - Constitutional Vitals: Temp Pulse Resp BP Pulse Ox 98.3 F 83 14 103/70 96 07/08/17 11:04 07/08/17 11:04 07/08/17 11:04 07/08/17 11:04 07/08/17 11:04 General appearance: Present: cooperative, A&O X 3, answers questions appropriately Exam: Moderate distress - Neck Neck exam general surgery: Present: supple, trachea midline. Absent: lymphadenopathy - Respiratory Respiratory exam: Present: CTAB. Absent: accessory muscle use, rales, rhonchi, wheezes - Cardiovascular Cardiovascular exam: Present: RRR, +S1, +S2. Absent: diastolic murmur, gallop, rubs, systolic murmur - GI/Abdominal GI/Abdominal exam: Present: normal bowel sounds, soft, tenderness (Right upper quadrant), no peritoneal signs. Absent: distended - Extremities Exam Extremities exam: Present: warm, radial pulses palpable and symmetrical. Absent : calf tenderness, cyanotic, pedal edema - Neurological Exam Neurological exam: Present: CN II-XII intact, oriented X3, no focal deficits. Absent: facial droop, speech deficit - Skin Skin exam: Present: dry, intact Additional comments: Jaundice Internal Medicine: Result - Labs CBC & Chem 7: 07/08/17 04:19 07/08/17 04:19 Labs: Short CBC 07/08/17 Range/Units 04:19 WBC 7.5 (4.3-11.1) K/mcL Hgb 8.5 L D (11.5-15.4) g/dL Hct 26.2 L (35.3-44.9) % Plt Count 225 (140-400) K/mcL Neutrophils # 5.1 (1.6-8.9) K/mcL BMP 07/08/17 04:19 Sodium 135 L Potassium 3.6 Chloride 106 Carbon Dioxide 22 BUN 4 L Creatinine 0.45 L Glucose 96 Calcium 6.9 L Liver Function 07/08/17 Range/Units 04:19 Total Bilirubin 2.7 H (0.2-1.2) mg/dL Direct Bilirubin 1.9 H (0.0-0.5) mg/dL AST 166 H (5-34) Units/L ALT 24 (0-55) Units/L Alkaline Phosphatase 157 H (38-126) Units/L Albumin 2.0 L (3.5-5.0) g/dL - Impressions Impressions Liver Ultrasound 07/08/17 12:00 IMPRESSION: 1. Gallstone and gallbladder sludge with gallbladder wall thickening, pericholecystic fluid and a positive sonographic Mao's sign. Findings likely reflect acute cholecystitis. 2. Small amount of perihepatic ascites. 3. Right pleural effusion. D/ / Laly Galindo / Laly Galindo Interpreting Provider: Laly Galindo Consult Discharge Plan - Plan Referrals: NONE,PCP [Primary Care Provider] -
[2017-07-09] MEDS: *HR* HYDROmorphone (PF) 1 MG/ML SYRINGE IVP PRN ×2 (02:05→07:42)
[2017-07-09 04:14] VITALS: BP 101/66
[2017-07-09] MEDS: *HR* OxyCODONE Immed Rel 5 MG TABLET PO PRN (05:31)
[2017-07-09] MEDS: *HR* Heparin 5,000 UNIT/ML VIAL SQ SCH (05:33)
[2017-07-09 06:45] LABS: Alanine Aminotransferase 22 Units/L (0-55); Albumin/Globulin Ratio 0.5 (1.1-2.2); Alkaline Phosphatase 152 Units/L (38-126); Aspartate Amino Transferase 152 Units/L (5-34); BUN/Creatinine Ratio 7 (6-26); Calcium 6.7 mg/dL (8.6-10.8); Carbon Dioxide 20 mEq/L (19-29); Chloride 107 mEq/L (98-109); Globulin 3.9 g/dL (2.4-3.5); Glucose 98 mg/dL (70-99); Osmolality,Calculated 281 (280-300); Sodium 137 mEq/L (136-145); Total Protein 5.8 g/dL (6.0-8.3); eGFR For African Americans > 60 (> 60); eGFR For Non-African Americans > 60 (> 60)
[2017-07-09 06:46] LABS: Albumin 1.9 g/dL (3.5-5.0); Blood Urea Nitrogen 4 mg/dL (7-20)
[2017-07-09 06:48] LABS: Basophils % 0.6 %; Hematocrit 26.8 % (35.3-44.9); Hemoglobin 8.8 g/dL (11.5-15.4); Immature Granulocytes % 0.3 % (0-4); Lymphocytes # 1.1 K/mcL (0.6-4.6); Lymphocytes % 16.3 %; Mean Corpuscular HGB Conc 32.8 g/dL (31.6-35.5); Mean Corpuscular Hemoglobin 36.2 pg (28.0-33.3); Mean Corpuscular Volume 110.3 fL (83.0-100.0); Monocytes # 0.7 K/mcL (0.0-1.3); Monocytes % 10.1 %; Neutrophils # 4.7 K/mcL (1.6-8.9); Platelet Count 210 K/mcL (140-400); Red Blood Count 2.43 M/mcL (3.82-4.97); Red Cell Distribution Width 14.6 % (11.5-14.5); Segmented Neutrophils % 72.7 %
[2017-07-09 07:28] LABS: Platelet Estimate Normal (Normal)
[2017-07-09 07:29] LABS: Macrocytosis Present (Not Present)
[2017-07-09] MEDS: 0.9 % Sodium Chloride 1,000 ML IVC SCH (07:42)
[2017-07-09] MEDS: MetroNIDAZOLE 500 MG/100 ML 500 MG/100 ML BAG IVPB SCH (07:47)
--- NOTE | 2017-07-09 11:54 | General Surgery Progress Note ---
<Petty Solares - Last Filed: 07/09/17 16:04> Date of Encounter: 07/09/17 Time of Encounter: 06:45 - Assessment and Plan (1) Abdominal pain Status: Acute Worsening band like abdominal pain worsening with distension over the past week with jaundice present. Patient was found to have a hepatitis C reactive antibody that Dr. Thacker is involved in working up. Currently presentation is leading to hepatitis C causing her abdominal pain as her pain is described as a band across both upper quadrants and is not characteristic of acute cholecystitis.Surgery may not alleviate pain as it may be due to hepatitis. We will hold surgery as GI is working up if this is an active hepatitis C infection. Recommend reevaluate after GI work-up with hep c quant and MRCP. Imaging results: CT abdomen showed dilated common bile duct and duodenitis with gallbladder with distension, sludge, and possible stones, mild stranding in the right upper quadrant about the proximal duodenum and pancreatic head. Hepatomegaly present. RUQ US showed 16.8cm liver. gallstone and gallbladder sludge with gallbladder wall thickening,pericholecystic fluid and a positive sonographic Mao's sign. Tbili elevated to 3.0, Alkaline phosphatase elevated 196, and AST elevated 166 secondary to increase pressure in the bile duct system possible obstruction lower in the biliary system. Hepatitis C antibody positive. MRI abdomen showed hepatosplenomegaly with fatting infiltrates and periportal edema consistent with hepatitis. inflammation of the duodenum, distended gall bladder with mild wall thickening with cholelithiasis. Qualifiers: Abdominal location: generalized Qualified Code(s): R10.84 - Generalized abdominal pain (2) Hepatitis C antibody positive in blood Status: Acute GI has ordered Hepatitis C Qnt to see if patient has an active hepatitis infection. (3) Elevated bilirubin Status: Acute patient has hx of alcohol abuse and CT showing hepatomegaly. Elevated total bilirubin of 3.0, 2.7. Direct bili elevated 1.6, 1.9. With associated elevated alkaline phosphatase at 196, 157. Liver US showed Gallstone and gallbladder sludge with gallbladder wall thickening,pericholecystic fluid and a positive sonographic Mao's sign. GI consulted and will further work up hepatitis C and MRCP for r/o CBD obstruction. (4) Hepatomegaly Status: Acute History of prior alcoholism without binging of alcohol in the past 5-10 years. but does still drink occasionally. Liver ultrasound showed mild enlargement of liver at 16.8cm. (5) History of alcohol abuse Status: Acute History of prior alcoholism without binging of alcohol in the past 5-10 years. but does still drink occasionally. Subjective Narrative: Patient is a 37-year-old female with past medical history of prior alcoholism presented to the ER complaining of progressive abdominal distention, diffuse pain, and darkening of urine found to have positive hep C antibodies. Today, patient says her pain is a little less. She was able to tolerate food without N/V. Denies SOB or chest pain. Objective Vital Signs - Last 8 Hours Temp Pulse Resp BP Pulse Ox 07/09/17 04:10 97.8 F 96 15 101/66 95 Intake and Output 07/08/17 07/09/17 07/09/17 23:59 07:59 15:59 Intake Total 920 / 920 1900 / 1900 Output Total 0 / 0 500 / 500 Balance 920 / 920 1400 / 1400 Intake: IV Fluids 200 / 200 1100 / 1100 0.9 % Sodium Chloride 1,000 ML 1000 / 1000 @ 125 mls/hr IVC .Q8H JANIS Rx#: [id number] Cipro Premix 200 MG/100 ML 200 100 / 100 mg In 100 ml @ 100 mls/hr IVPB Q12HR JANIS Rx#:[id number] Flagyl Premix 500 MG/100 ML 500 100 / 100 100 / 100 mg In 100 ml @ 100 mls/hr IVPB Q8HR JANIS Rx#:[id number] Oral 720 / 720 800 / 800 Output: Urine 0 / 0 500 / 500 Other: Meal Dinner Percent of Meal Consumed 100% Weight 50.1 kg Blood Glucose* 104 Patient Weight 07/09/17 23:59 Weight 50.1 kg - General physical appearance well developed, well nourished - Respiratory normal expansion, normal respiratory effort, clear to auscultation - Cardiovascular Cardiovascular exam: Present: RRR, no murmurs/rubs/gallops - Abdomen Abdomen: Present: bowel sounds present, distended. Absent: guarding Abdominal Tenderness: diffusely - Integumentary no rash - Neurologic normal coordination, normal sensation - Psychiatric oriented to time, oriented to person, oriented to place, speech is normal, memory intact - Labs 07/09/17 06:03 07/09/17 06:03 Diabetes panel 07/09/17 Range/Units 06:03 Sodium 137 (136-145) mEq/L Potassium 3.0 L (3.5-4.5) mEq/L Chloride 107 (98-109) mEq/L Carbon Dioxide 20 (19-29) mEq/L BUN 4 L (7-20) mg/dL Creatinine 0.54 L (0.57-1.11) mg/dL Glucose 98 (70-99) mg/dL Calcium 6.7 L (8.6-10.8) mg/dL AST 152 H (5-34) Units/L ALT 22 (0-55) Units/L Alkaline Phosphatase 152 H (38-126) Units/L Albumin 1.9 L (3.5-5.0) g/dL Calcium panel 07/09/17 Range/Units 06:03 Calcium 6.7 L (8.6-10.8) mg/dL Albumin 1.9 L (3.5-5.0) g/dL Pituitary panel 07/09/17 Range/Units 06:03 Sodium 137 (136-145) mEq/L Potassium 3.0 L (3.5-4.5) mEq/L Chloride 107 (98-109) mEq/L Carbon Dioxide 20 (19-29) mEq/L BUN 4 L (7-20) mg/dL Creatinine 0.54 L (0.57-1.11) mg/dL Glucose 98 (70-99) mg/dL Calcium 6.7 L (8.6-10.8) mg/dL Adrenal panel 07/09/17 Range/Units 06:03 Sodium 137 (136-145) mEq/L Potassium 3.0 L (3.5-4.5) mEq/L Chloride 107 (98-109) mEq/L Carbon Dioxide 20 (19-29) mEq/L BUN 4 L (7-20) mg/dL Creatinine 0.54 L (0.57-1.11) mg/dL Glucose 98 (70-99) mg/dL Calcium 6.7 L (8.6-10.8) mg/dL Total Bilirubin 3.0 H (0.2-1.2) mg/dL AST 152 H (5-34) Units/L ALT 22 (0-55) Units/L Alkaline Phosphatase 152 H (38-126) Units/L Albumin 1.9 L (3.5-5.0) g/dL Consult Discharge Plan - Plan Referrals: NONE,PCP [Primary Care Provider] - <Sancho Wiggins - Last Filed: 07/10/17 14:15> Date of Encounter: 07/09/17 Objective - Labs 07/09/17 06:03 07/09/17 06:03 - Attending Attestation I examined this patient and my medical decision-making was reviewed with the Resident Physician. I agree with the documented findings, disposition and treatment plan as described except to the extent set forth below. The patient is seen and evaluated with rest recurrence. She continues to have upper abdominal discomfort and distention. She appears to have acute hepatitis C. I would not recommend proceeding with any type of gallbladder surgery while she is in the acute phase of her hepatitis infection. We will continue to follow along with you the gallbladder is likely distended along with the common bile duct related to duodenitis and jejunitis. Sancho Wiggins MD FACS
[2017-07-11 14:36] LABS: HCV Quant Interpretation DETECTED (Not Detected)
--- NOTE | 2017-07-23 18:41 | Event Note ---
Date of Encounter: 07/23/17 Time of Encounter: 00:00 Patient left AGAINST MEDICAL ADVICE before could be seen by myself
== END 2017-07-09 08:20 | disposition left against medical advice (07) ==
LOC: EMEROO 16:31 → 3ANU 16:31 → SUATTDRO 21:35
PROVIDERS: ADMIT Internal Medicine; ATTEND Hospitalist

== ENCOUNTER 2017-07-09 08:54 | Inpatient (IN) ==
[2017-07-09 11:08] LABS: Bilirubin,Urine Small (Negative); Blood,Urine Negative (Negative); Color,Urine Orange (Yellow); Glucose,Urine (UA) Normal (Normal); Ketones,Urine Negative (Negative); Leukocyte Esterase,Urine Small (Negative); Nitrite,Urine Negative (Negative); PH,Urine 5.5 pH Units (5.0-8.0); Protein,Urine Trace mg/dL (Neg-Trace); Specific Gravity,Urine 1.019 (1.010-1.025)
[2017-07-09 11:13] LABS: Bacteria,Urine Few per hpf (None-Few); Hyaline Casts,Urine Few per lpf (None-Few); RBC,Urine 0-3 per hpf (0-3); Squamous Epithelial Cell,Urine Many per lpf (None-Few)
[2017-07-09 11:16] LABS: Clarity,Urine Slightly Hazy (Clear)
[2017-07-09] MEDS ORDERED: Ondansetron 4 MG/2 ML VIAL IVP ONE (11:40)
[2017-07-09] MEDS ORDERED: 0.9 % Sodium Chloride 1,000 ML IVC ONE (11:40)
[2017-07-09] MEDS ORDERED: *HR* HYDROmorphone (PF) 1 MG/ML SYRINGE IVP ONE (11:55)
[2017-07-09] MEDS ORDERED: Hydrocortisone Sodium Succ 100 MG/2 ML VIAL IVP ONE (11:59)
--- NOTE | 2017-07-09 12:02 | Emergency Department Note ---
Disposition Clinical Impression: Biliary sludge, Macrocytic anemia, History of alcohol abuse, Hepatitis C antibody positive in blood, Cholecystitis, Elevated bilirubin, Transaminitis Abdominal pain Qualifiers: Abdominal location: generalized Qualified Code(s): R10.84 - Generalized abdominal pain Disposition: Admitted As Inpatient Condition: Fair Time of Disposition: 12:15 General Adult HPI - General Chief complaint: ED Abdominal Pain Stated complaint: ABD / Back Pain Time Seen by Provider: 07/09/17 10:52 Source: patient Mode of arrival: ambulatory Limitations: no limitations Nursing Notes Reviewed: Yes Vital Signs Reviewed: Yes - History of Present Illness HPI Narrative: Patient presents emergency room with abdominal pain nausea and discomfort. Patient signed out of the hospital this morning AGAINST MEDICAL ADVICE secondary to smoking in the bathroom and a nurse confrontation. Patient has had persistent symptoms since then. She was scheduled for procedures this afternoon. Denies any change or injury or trauma this time. No other complaints or issues nothing at this time. Onset (ago): day(s) Location: abdomen Radiation: abdomen Pain Severity: moderate Pain Scale: 9 Quality: stabbing, aching Consistency: constant Improves with: nothing Worsens with: movement Associated symptoms: Reports: fever/chills, loss of appetite, malaise, nausea/ vomiting Treatments Prior to Arrival: none - Related Data Home Medications Medication Instructions Recorded Confirmed No Known Home Drugs 07/09/17 07/09/17 Allergies Allergy/AdvReac Type Severity Reaction Status Date / Time No Known Allergies Allergy Verified 07/07/17 16:39 All systems ED: reviewed and negative except as stated. Review of Systems: As Per HPI Constitutional: Reports: fever, chills, weakness Cardiovascular: Denies: chest pain, palpitations, dyspnea on exertion, orthopnea Respiratory: Denies: cough, dyspnea, wheezes Gastrointestinal: Reports: abdominal pain, nausea, vomiting, constipation. Denies: diarrhea Genitourinary: Denies: urgency, dysuria, frequency Musculoskeletal: Reports: back pain. Denies: neck pain Integumentary: Reports: rash, pruritus Past Medical History - Past Medical History Attestation: Yes The following information was validated with the patient. Source: patient Medical history: Reports: hypertension Surgical history: Reports: Psychiatric history: Reports: anxiety - Social History Smoking Status: Current every day smoker Alcohol use: Reports: occasionally Drug use: Reports: none Physical Exam - General General appearance: alert, in no apparent distress - Head Head exam: atraumatic, normocephalic, normal inspection - Neck Neck exam: Present: normal inspection, full ROM, trachea midline - Chest Chest inspection: Present: normal inspection, symmetric chest wall rise - Respiratory Respiratory exam: Present: normal lung sounds bilaterally - Cardiovascular Cardiovascular exam: Present: normal rhythm, tachycardia, normal heart sounds - Abdominal Exam Abdominal exam: Present: soft, tenderness, distention, guarding, normal bowel sounds. Absent: Non-Tender, rebound, rigidity - Extremities Exam Extremities exam: Present: normal inspection - Back Exam Back exam: Present: normal inspection, full ROM. Absent: tenderness, CVA tenderness (R), CVA tenderness (L) - Neurological Exam Neurological exam: Present: alert, oriented X3, CN II-XII intact, normal gait - Skin Skin exam: Present: warm, dry, intact, normal color Course Course Narrative: Patient seen and examined some arrival my shift. 37-year-old female with multiple issues presents emergency room after leaving the hospital AMA this morning. Patient signed out AGAINST MEDICAL ADVICE secondary to stone issues with nursing staff as well as possibility of smoking a bathroom upstairs. Patient denies any drugs of abuse who does have a significant alcohol history along with what appears to be cholecystitis with obstructive pathology. She also has a dilated liver. Several days with an inpatient evaluation treatment were reviewed including ultrasound of the liver CT scan of the abdomen as well as labs. Chronic anemia is noted with stable kidney function. Rest of electrolytes appear to be unremarkable at this time except for trending of total bilirubin. Consultation placed to the on-call digging machine operator Dr. hurst and he is not aware of this patient considering she has been in the hospital setting for several days and was not informed of her evaluation. Otherwise the patient does appear to be in some moderate distress lungs are clear heart is mildly tachycardic. She has diffuse tenderness in the abdomen with distention at this time. Repeat CT imaging of the abdomen or along with fluid and pain control. Labs from less than 10 hours ago reviewed by myself showing stable laboratory evaluation. No need for repeat evaluation this time. Disposition will most likely be admission to hospital for continuation of her care once the imaging study is resulted. Pain control; nausea. No other concerns or issues noted this point. Patient understands the projected plan she is comfortable with this at this time - Reevaluation(s) Reevaluation #1: She has poor vascular access. PICC line team called at this point for access to be obtained. Time: 12:49 Reevaluation #2: CT imaging shows stable gallbladder presentation with inflammation of the proximal duodenum concerning for duodenitis. She also has increase in the fluid accumulation ascites in the abdomen. No other acute pathology. Auscultation placed to the hospitalist at this time for admission the reestablishing of care. Time: 14:32 Reevaluation #3: CT shows mild progression of ascites andno recent change in the gallbladder presentation. Patient is otherwise doing better at this time with fluids and pain medication. Admission process to be completed for reevaluation. Discussion was had with the on-call hospitalist Dr. Bryson detailed review the presentation symptoms and what I know of the patient's recent admission were discussed. Time: 15:00 Vital Signs Temperature 97.9 F 07/09/17 09:14 Pulse Rate 102 07/09/17 09:14 Respiratory Rate 16 07/09/17 09:14 Blood Pressure 105/73 07/09/17 09:14 O2 Sat by Pulse Oximetry 98 07/09/17 09:14 Temperature 97.9 F 07/09/17 09:14 Pulse Rate 94 07/09/17 13:30 Respiratory Rate 20 07/09/17 13:30 Blood Pressure 96/67 07/09/17 13:30 O2 Sat by Pulse Oximetry 100 07/09/17 13:30 Oxygen Delivery Oxygen Delivery Room Air Medical Decision Making - MDM Narrative Medical decision making narrative: Abdominal pain, elevated T bili, transaminitis, nausea, hepatitis C - Medical Records Medical records reviewed: Yes I reviewed the patient's medical records. - Lab Data Lab results reviewed: Yes I reviewed the patient's lab results. Lab Results 07/09/17 Range/Units 10:50 Urine Color Aurora A (Yellow) Urine Clarity Slightly Hazy (Clear) Urine pH 5.5 (5.0-8.0) pH Units Ur Specific Neal 1.019 (1.010-1.025) Urine Protein Trace (Neg-Trace) mg/dL Urine Glucose (UA) Normal (Normal) mg/dL Urine Ketones Negative (Negative) mg/dL Urine Blood Negative (Negative) Urine Nitrite Negative (Negative) Urine Bilirubin Small H (Negative) Urine Urobilinogen 2.0 H (Normal) mg/dL Ur Leukocyte Esterase Small H (Negative) Urine Microscopic RBC 0-3 (0-3) per hpf Urine Microscopic WBC 5-15 H (0-3) per hpf Ur Squamous Epith Cells Many H (None-Few) per lpf Urine Bacteria Few (None-Few) per hpf Hyaline Casts Few (None-Few) per lpf Ur Culture Indicated? YES A (NO) - Radiology Data Radiology results reviewed: Yes I reviewed the patient's radiology results.
[2017-07-09] MEDS ORDERED: Naloxone 0.4 MG/ML INJ IVP PRN (15:58)
[2017-07-09] MEDS ORDERED: Ondansetron ODT 4 MG TAB.RAPDIS SL PRN (15:58)
[2017-07-09] MEDS ORDERED: Acetaminophen 325 MG TABLET PO PRN (15:58)
--- NOTE | 2017-07-09 16:06 | Internal Med History&Physical ---
Date of Encounter: 07/09/17 Time of Encounter: 16:06 Assessment and Plan (1) Sepsis Current visit: No Status: Acute 1 patient initially presented and met sepsis criteria most likely related to cholecystitis she is not tachycardic however she has hypotension She did sign out AMA and went outside to smoke has not been receiving any fluids for some time. We will continue with IV hydration 2 her white count is trending down and we will continue to monitor continue with Cipro and Flagyl for now Qualifiers: Sepsis type: sepsis due to unspecified organism Qualified Code(s): A41.9 - Sepsis, unspecified organism (2) Cholecystitis Current visit: Yes Status: Acute [address] scan and abdominal ultrasound findings. Surgery and GI has been consulted. We will follow the recommendations 2 continue with IV antibiotics as well as pain control. Continue with Cipro and Flagyl 3 GI does recommend MRCP. I did speak with DR Valentine who states that MRCP will be completed in the a.m. patient will be nothing by mouth after midnight (3) Hepatitis C antibody positive in blood Current visit: Yes Status: Acute 1 GI has been consulted will follow their recommendations-suggesting possible liver biopsy tomorrow (4) Hepatomegaly Current visit: No Status: Acute 1 GI has been consulted-repeat liver ultrasound per GI recommendations. I did speak with Dr. Valentine who advises the patient will more likely undergo liver biopsy possibly tomorrow (5) Tobacco abuse Current visit: No Status: Chronic Patient left AMA previously today due to 1 teen to smoke. Encouraged patient to stop smoking and gave patient a nicotine patch (6) DVT prophylaxis Current visit: Yes Status: Acute 1 heparin subcutaneous (7) Macrocytic anemia Current visit: Yes Status: Chronic 1 hemoglobin this a.m. was 8.8, we will continue to monitor. Folic acid was low 2.9 was replaced we will continue to supplement Internal Medicine - H&P: HPI Chief complaint: abd pain Admitted From: Emergency Dept Plans for Post Hospital Care: Home History of present illness: Ms. Fuentes is a 37 year old female past medical history of alcohol abuse. Patient was admitted to this hospital on 07/07/2017 with abdominal pain, distention and jaundice. He was found to be septic and have hepatitis C reactive antibody as well as hepatomegaly and abnormal LFTs. As well as what appears to be cholecystitis with obstructive pathology as well as a dilated liver. She has had several days of inpatient evaluation and treatment including ultrasound of liver CT scan of abdomen as well as multiple labs. She has chronic anemia as well as attending total bilirubin. Apparently she had a disagreement with a nurse concerning smoking and signed out AMA without to smoke her cigarettes and then return to the ER to be readmitted. She has been evaluated in the ER, Dr. Garrett with GI has seen the patient obtaining liver ultrasound and will obtain previous medical records from other facilities. She will be readmitted for further workup. Presently the patient does not appear to be in any pain at this time she states that she was recently medicated. Her lung sounds are clear heart sounds are regular S1 and S2 with no rubs clicks, murmurs noted. Abdomen is distended and tender to palpation liver is palpable. She is hemodynamically stable at this time. I did speak with Dr. Kirby who will update me concerning possible MRCP later today. We will continue nothing by mouth status with patient 1) Sepsis Current Visit: Yes Status: Acute Assessment and plan: Possibly from acute cholecystitis. Clinically improving. Has not had any fever today. Heart rate improving. Continue current antibiotics. Continue IV hydration. Qualifiers: Sepsis type: sepsis due to unspecified organism Qualified Code(s): A41.9 - Sepsis, unspecified organism (2) Cholecystitis Current Visit: Yes Status: Acute Assessment and plan: Based on CT scan and abdominal ultrasound findings. Surgery and GI consulted. Will follow recommendations. Treat nausea and pain with intravenous antiemetics and pain medications as needed. Height is for complications due to use of intravenous narcotic medications. On ciprofloxacin and Flagyl. liver ultrasound suggests presence of cholecystitis. GI recommends MRCP. Will obtain this study. CBD within normal limits. (3) Enteritis Current Visit: Yes Status: Acute Assessment and plan: Not having any diarrhea. Could be related to gallbladder and bile duct disease (4) Hepatomegaly Current Visit: Yes Status: Acute Assessment and plan: Per CT. Liver ultrasound shows normal-sized liver. With normal echogenicity. (5) Macrocytic anemia Current Visit: Yes Status: Chronic Assessment and plan: Hemoglobin 8.5 today. We will patient does have low folic acid levels. We will replace intravenously. Past Med Surg Social Fam HX - Past Medical History Medical history: hypertension Psychiatric history: anxiety - Past Surgical History Surgical History: - Social History Smoking Status: Current every day smoker Alcohol use: occasionally Drug use: none - Family History Mother Living Status: Still Living Hx Family Cardiac Disorders: Yes (Heart disease) Hx Family Respiratory Disorders: Yes (COPD) Hx Family Cancer: Yes Father Living Status: Hx Family Cancer: Yes Internal Medicine - H&P: Meds No Known Home Drugs 07/09/17 [History] 3 Allergy/AdvReac Type Severity Reaction Status Date / Time No Known Allergies Allergy Verified 07/07/17 16:39 All Systems PM: A 10-system review of systems was performed and is negative for pertinent findings except as documented above in the HPI. - Constitutional Constitutional: no chills, no fever(s), no night sweats - EENT Eyes: no change in vision, no discharge, no pain, no photophobia Nose, mouth and throat: no dysphagia, no nasal discharge, no neck pain, no sore throat - Cardiovascular Cardiovascular ROS IM: no chest pain, no diaphoresis, no dyspnea, no lightheadedness, no palpitations, no syncope - Respiratory Respiratory: no cough, no dyspnea, no wheezing, no excessive phlegm production - Gastrointestinal Gastrointestinal: abdominal pain, bloating, early satiety, nausea - Genitourinary Genitourinary: no change in urinary stream, no dysuria, no flank pain, no hematuria - Musculoskeletal Musculoskeletal ROS IM: no numbness, no tingling - Integumentary Integumentary IM: no rash, no unusual bruising - Neurological Neurological ROS: no confusion, no convulsions, no focal weakness, no numbness, no tingling, no tremor(s) - Hematologic/Lymphatic Hematologic/Lymphatic: no easy bruising - Constitutional Vitals: Temp Pulse Resp BP Pulse Ox 97.9 F 93 20 80/53 96 07/09/17 09:14 07/09/17 15:00 07/09/17 15:51 07/09/17 15:51 07/09/17 15:00 General appearance: Present: A&O X 3, answers questions appropriately - Head Head exam: Present: atraumatic, normocephalic - Eye Eye exam: Present: PERRL, conjuntiva pink, sclera anicteric Pupils: Present: PERRL - Neck Neck exam general surgery: Present: supple, trachea midline. Absent: lymphadenopathy - Cardiovascular Cardiovascular exam: Present: RRR, +S1, +S2. Absent: diastolic murmur, gallop, rubs, systolic murmur - GI/Abdominal GI/Abdominal exam: Present: distended, firm, hepatomegaly, normal bowel sounds, tenderness, no peritoneal signs - Expanded GI/Abdominal Exam GI/Abdominal exam expanded: Present: ascites - Extremities Exam Extremities exam: Present: warm, radial pulses palpable and symmetrical. Absent : calf tenderness, cyanotic, pedal edema - Neurological Exam Neurological exam: Present: CN II-XII intact, oriented X3, no focal deficits. Absent: pronater drift, facial droop, speech deficit - Skin Skin exam: Present: dry, intact Internal Med - H&P Results - Diagnostic Studies Other Images Additional comments: Abdomen/Pelvis CT 07/09/17 12:11 IMPRESSION: 1. New bilateral pleural effusions, increasing abdominal ascites, and anasarca 2. Hepatomegaly 3. Stable appearance of the gallbladder, which contains sludge and stones 4. Fluid around the proximal duodenum may indicate duodenitis D/ / Paul Dodd MD / Paul Dodd MD Interpreting Provider: Paul Dodd MD
[2017-07-09] MEDS ORDERED: 0.9 % Sodium Chloride 1,000 ML IVC SCH (16:30)
[2017-07-09] MEDS: Nicotine 14 MG PATCH.TD24 TD SCH (17:02)
[2017-07-09] MEDS: *HR* HYDROmorphone (PF) 1 MG/ML SYRINGE IVP PRN ×2 (18:27→23:20)
[2017-07-09] MEDS: 0.9 % Sodium Chloride 1,000 ML IVC SCH (18:30)
[2017-07-09] MEDS: MetroNIDAZOLE 500 MG/100 ML 500 MG/100 ML BAG IVPB SCH (18:34)
[2017-07-09] MEDS: *HR* Heparin 5,000 UNIT/ML VIAL SQ SCH (18:39)
[2017-07-09] MEDS ORDERED: Ketorolac 15 MG/ML VIAL IVP PRN (19:12)
[2017-07-10] MEDS ORDERED: *HR* OxyCODONE Immed Rel 5 MG TABLET PO ONE (01:00)
[2017-07-10] MEDS: MetroNIDAZOLE 500 MG/100 ML 500 MG/100 ML BAG IVPB SCH ×4 (01:14→18:32)
[2017-07-10] MEDS: 0.9 % Sodium Chloride 1,000 ML IVC SCH (05:25)
[2017-07-10] MEDS: *HR* Heparin 5,000 UNIT/ML VIAL SQ SCH ×2 (05:27→18:53)
[2017-07-10 05:57] LABS: INR 1.6; Prothrombin Time 17.5 Seconds (9.4-12.1)
[2017-07-10 05:59] LABS: Activated Partial Thrombo Time 37.5 Seconds (26.0-36.0)
[2017-07-10 06:09] LABS: BUN/Creatinine Ratio 10 (6-26); Calcium 6.3 mg/dL (8.6-10.8); Carbon Dioxide 21 mEq/L (19-29); Chloride 109 mEq/L (98-109); Glucose 119 mg/dL (70-99); Osmolality,Calculated 280 (280-300); Potassium 3.4 mEq/L (3.5-4.5); Sodium 136 mEq/L (136-145); eGFR For African Americans > 60 (> 60); eGFR For Non-African Americans > 60 (> 60)
[2017-07-10 06:19] LABS: Blood Urea Nitrogen 5 mg/dL (7-20)
[2017-07-10 06:45] LABS: Hematocrit 27.3 % (35.3-44.9); Hemoglobin 8.8 g/dL (11.5-15.4); Immature Granulocytes % 0.6 % (0-4); Lymphocytes # 0.8 K/mcL (0.6-4.6); Lymphocytes % 11.4 %; Mean Corpuscular HGB Conc 32.2 g/dL (31.6-35.5); Mean Corpuscular Hemoglobin 35.3 pg (28.0-33.3); Mean Corpuscular Volume 109.6 fL (83.0-100.0); Monocytes # 0.4 K/mcL (0.0-1.3); Monocytes % 5.8 %; Neutrophils # 5.9 K/mcL (1.6-8.9); Platelet Count 225 K/mcL (140-400); Red Blood Count 2.49 M/mcL (3.82-4.97); Red Cell Distribution Width 14.6 % (11.5-14.5); Segmented Neutrophils % 82.2 %
[2017-07-10] MEDS: Nicotine 14 MG PATCH.TD24 TD SCH (08:01)
[2017-07-10] MEDS: *HR* HYDROmorphone (PF) 1 MG/ML SYRINGE IVP PRN ×4 (08:01→21:24)
--- NOTE | 2017-07-10 09:07 | Event Note ---
Date of Encounter: 07/10/17 Time of Encounter: 09:06 Surgery has signed off for now as GI is managing patient's abdominal pain currently, please call with questions or concerns.
--- NOTE | 2017-07-10 16:49 | Internal Med Progress Note ---
Date of Encounter: 07/10/17 Time of Encounter: 11:00 - Assessment and plan (1) Abdominal pain Current Visit: Yes Status: Acute Assessment and plan: -CT of the abdomen/pelvis on 07/09/17 showed increasing abdominal ascites in addition to hepatomegaly; gallbladder was also noted to have sludge/stones. -Right upper quadrant ultrasound done on 07/09/17 again showed distention of gallbladder with stones; there is also diffuse hepatocellular disease with fatty infiltration that was noted. -No evidence of acute cholecystitis on MRCP. -Interventional radiology not available this afternoon so discussed case with general surgeon who does not believe that ascites needs to be drained stat ( this evening). -Will consult interventional radiology for the morning and GI has already been consulted. Qualifiers: Abdominal location: generalized Qualified Code(s): R10.84 - Generalized abdominal pain (2) Hepatomegaly Current Visit: No Status: Acute Assessment and plan: -Patient has hepatitis C with a history of alcohol abuse;imaging as above. -GI has been consulted and appreciate recommendations. (3) Macrocytic anemia Current Visit: Yes Status: Chronic Assessment and plan: -Hemoglobin stable; will continue to monitor. (4) Hepatitis C antibody positive in blood Current Visit: Yes Status: Acute Assessment and plan: -GI has been consulted and appreciate recommendations. (5) Transaminitis Current Visit: Yes Status: Acute Assessment and plan: -Patient with elevated transaminases. -GI consult as above. (6) History of alcohol abuse Current Visit: No Status: Chronic Assessment and plan: -Patient only reports of now drinking alcohol occasionally. - Subjective Interval history: Patient continues to complain of abdominal discomfort in addition to abdominal distention. She is requesting food however. - Constitutional Vitals: Temp Pulse Resp BP Pulse Ox 98.5 F 74 18 102/74 97 07/10/17 15:24 07/10/17 15:24 07/10/17 15:24 07/10/17 15:24 07/10/17 15:24 General appearance: Present: A&O X 3, answers questions appropriately - Respiratory Respiratory exam: Present: CTAB. Absent: accessory muscle use, rales, rhonchi, wheezes - Cardiovascular Cardiovascular exam: Present: RRR, +S1, +S2. Absent: diastolic murmur, gallop, rubs, systolic murmur - GI/Abdominal GI/Abdominal exam: Present: distended, normal bowel sounds, soft. Absent: guarding, no peritoneal signs Internal Medicine: Result - Labs CBC & Chem 7: 07/10/17 05:47 07/10/17 05:47 Labs: Short CBC 07/10/17 Range/Units 05:47 WBC 7.1 (4.3-11.1) K/mcL Hgb 8.8 L (11.5-15.4) g/dL Hct 27.3 L (35.3-44.9) % Plt Count 225 (140-400) K/mcL Neutrophils # 5.9 (1.6-8.9) K/mcL BMP 07/10/17 05:47 Sodium 136 Potassium 3.4 L Chloride 109 Carbon Dioxide 21 BUN 5 L Creatinine 0.51 L Glucose 119 H Calcium 6.3 L - ABG Interpretation ABG results: PT/INR, D-dimer PT 17.5 Seconds (9.4-12.1) H 07/10/17 05:47 - Impressions Impressions Bile Acid Absorption NM 07/10/17 07:00 IMPRESSION: No evidence of acute cholecystitis. D/ / Pineda Mares MD / Pineda Mares MD Interpreting Provider: Pineda Mares MD Consult Discharge Plan - Plan Referrals: NONE,PCP [Primary Care Provider] -
[2017-07-10] MEDS: Ketorolac 15 MG/ML VIAL IVP PRN (19:41)
[2017-07-11] MEDS: MetroNIDAZOLE 500 MG/100 ML 500 MG/100 ML BAG IVPB SCH ×4 (00:03→18:17)
[2017-07-11] MEDS: Ketorolac 15 MG/ML VIAL IVP PRN ×2 (01:55→08:13)
[2017-07-11] MEDS: *HR* HYDROmorphone (PF) 1 MG/ML SYRINGE IVP PRN ×5 (01:55→19:42)
[2017-07-11 04:47] LABS: % Iron Saturation 30 % (15-50); Iron 38 mcg/dL (50-170); Transferrin 92 mg/dL (180-382)
[2017-07-11 05:07] LABS: Ferritin 302 ng/ml (5-204)
[2017-07-11] MEDS: *HR* Heparin 5,000 UNIT/ML VIAL SQ SCH ×2 (06:34→18:17)
[2017-07-11] MEDS ORDERED: *HR* HYDROmorphone (PF) 1 MG/ML SYRINGE IVP ONE (08:06)
[2017-07-11] MEDS: Nicotine 14 MG PATCH.TD24 TD SCH (08:15)
[2017-07-11] MEDS: *HR* OxyCODONE Immed Rel 5 MG TABLET PO PRN ×2 (14:03→19:43)
[2017-07-11 14:56] VITALS: BP 104/69
--- NOTE | 2017-07-11 15:56 | Gastroenterology Progress Note ---
<Kathrin Valentine - Last Filed: 07/12/17 06:36> Date of Encounter: 07/12/17 Time of Encounter: 15:54 - Assessment and plan (1) Hepatomegaly Status: Acute Assessment and plan: Elevated liver enzymes, most consistent with alcoholic liver disease however can not exclude other causes Discriminatory function is 14.5, patient is not a candidate for halfway steroids. Labs pending include smooth muscle antibody, alpha 1 antitrypsin, HOME, ceruloplasmin, celiac, IG G, mitochondrial antibody and TSH receptor antibody. If testing returns negative, would consider possibel liver biopsy to determine cause of cirrhosis and hepatomegaly. With development of ansarca, would recommend 50 g albumin daily and 20 mg lasix IV daily. Believe patient would benefit from higher level of care given uncertain diagnosis and worsening condition, would recommend transfer to [facility]. (2) Hepatitis C antibody positive in blood Status: Acute Assessment and plan: Previous testing with positive Hepatitis C antibody screen. Viral load unable o be quantified, no genotype available. Does not appear to be active hepatitis C infection. - Time Spent With Patient Total time spent is greater than 50% in coordination of care (as documented) at patient's floor/unit and/or counseling patient: - Subjective Interval history: Patient states they took her for paracentesis but when she got there she was told that there was not enough fluid to take off. She does admit to "leaking" of fluid from the spots on her stomach where she has been shot with the lovenox. Has also noticed more indentations in her legs when she sits for prolonged periods of time. Believes the swelling in her stomach is now extending down to her thighs. Still complaining of upper right quadrant pain, more located in back. - Constitutional Vitals: Temp Pulse Resp BP Pulse Ox 97.4 F L 98 15 104/69 97 07/11/17 14:55 07/11/17 14:55 07/11/17 14:55 07/11/17 14:55 07/11/17 14:55 General appearance: Present: cooperative, no acute distress, answers questions appropriately - Head Head exam: Present: atraumatic, normocephalic - Eye Eye exam: Present: scleral icterus (periphery). Absent: conjunctival injection - ENT ENT exam: Present: mucous membranes moist - Neck Neck exam general surgery: Present: supple, trachea midline - Respiratory Respiratory exam: Present: CTAB. Absent: rhonchi, stridor, wheezes - Cardiovascular Cardiovascular exam: Present: RRR, +S1, +S2. Absent: diastolic murmur, systolic murmur - GI/Abdominal GI/Abdominal exam: Present: distended, hepatomegaly (liver edge palpable mid abdomen ), normal bowel sounds, soft, tenderness (diffuse, tender across liver) . Absent: guarding - Extremities Exam Extremities exam: Present: warm Results - Labs CBC & Chem 7: 07/11/17 16:58 07/11/17 16:58 Labs: Last Result Calcium 6.3 mg/dL (8.6-10.8) L 07/10/17 05:47 Iron 38 mcg/dL (50-170) L 07/11/17 Unknown % Saturation 30 % (15-50) 07/11/17 Unknown Transferrin 92 mg/dL (180-382) L 07/11/17 Unknown Ferritin 302 ng/ml (5-204) H 07/11/17 Unknown Entire Visit Hgb 8.8 g/dL (11.5-15.4) L 07/10/17 05:47 Hct 27.3 % (35.3-44.9) L 07/10/17 05:47 PT 17.5 Seconds (9.4-12.1) H 07/10/17 05:47 Ferritin 302 ng/ml (5-204) H 07/11/17 Unknown - ABG ABG results: PT/INR, D-dimer PT 17.5 Seconds (9.4-12.1) H 07/10/17 05:47 - Impressions Impressions Abdomen/Pelvis/Transvag US 07/11/17 00:00 IMPRESSION: Not enough fluid to perform paracentesis. D/ / 07/11/2017 14:49:21 Nicolette Hong MD / Lisbeth Ngo Interpreting Provider: Nicolette Hong MD Consult Discharge Plan - Plan Referrals: NONE,PCP [Primary Care Provider] - <Rick Thacker - Last Filed: 07/12/17 09:13> Date of Encounter: 07/12/17 Time of Encounter: 17:35 - Time Spent With Patient Total time spent is greater than 50% in coordination of care (as documented) at patient's floor/unit and/or counseling patient: - Constitutional Vitals: Temp Pulse Resp BP Pulse Ox 97.4 F L 98 15 104/69 97 07/11/17 14:55 07/11/17 14:55 07/11/17 14:55 07/11/17 14:55 07/11/17 14:55 Results - Labs CBC & Chem 7: 07/11/17 16:58 07/11/17 16:58 Labs: Last Result Calcium 7.2 mg/dL (8.6-10.8) L 07/11/17 16:58 Iron 38 mcg/dL (50-170) L 07/11/17 Unknown % Saturation 30 % (15-50) 07/11/17 Unknown Transferrin 92 mg/dL (180-382) L 07/11/17 Unknown Ferritin 302 ng/ml (5-204) H 07/11/17 Unknown Entire Visit Hgb 9.2 g/dL (11.5-15.4) L 07/11/17 16:58 Hct 29.2 % (35.3-44.9) L 07/11/17 16:58 PT 17.5 Seconds (9.4-12.1) H 07/10/17 05:47 Ferritin 302 ng/ml (5-204) H 07/11/17 Unknown Total Bilirubin 2.1 mg/dL (0.2-1.2) H 07/11/17 16:58 AST 228 Units/L (5-34) H 07/11/17 16:58 ALT 23 Units/L (0-55) 07/11/17 16:58 Acetaminophen < 1.0 mcg/mL (10-30) L 07/11/17 16:58 - ABG ABG results: PT/INR, D-dimer PT 17.5 Seconds (9.4-12.1) H 07/10/17 05:47 - Impressions Impressions Abdomen/Pelvis/Transvag US 07/11/17 00:00 IMPRESSION: Not enough fluid to perform paracentesis. D/ / 07/11/2017 14:49:21 Nicolette Hong MD / Lisbeth Ngo Interpreting Provider: Nicolette Hong MD - Attending Attestation I examined this patient and my medical decision-making was reviewed with the Resident Physician. I agree with the documented findings, disposition and treatment plan as described except to the extent set forth below. Pt has worsening of her abdominal swelling along with lower extremity swelling although her ultrasound of the abdomen did not show much fluid to be drained. Workup for Budd-Chiari syndrome has been negative hepatitis C RNA is not quantifiable. Patient abnormal LFTs are still consistent with alcoholic liver disease but her DF is only 14 and does not meet criteria for steroid. Because of her worsening abdominal swelling along with pain/hepatomegaly needing a liver biopsy and we will recommend that she be transferred to [facility].
--- NOTE | 2017-07-11 16:47 | Internal Med Progress Note ---
Date of Encounter: 07/11/17 Time of Encounter: 10:00 - Assessment and plan (1) Abdominal pain Current Visit: Yes Status: Acute Assessment and plan: -CT of the abdomen/pelvis on 07/09/17 showed increasing abdominal ascites in addition to hepatomegaly; gallbladder was also noted to have sludge/stones. -Right upper quadrant ultrasound done on 07/09/17 again showed distention of gallbladder with stones; there is also diffuse hepatocellular disease with fatty infiltration that was noted. -No evidence of acute cholecystitis on MRCP. -Right upper quadrant ultrasound showed minimal fluid; interventional radiology does not believe that there is enough fluid to be drained. -GI has been consulted and appreciate recommendations. Qualifiers: Abdominal location: generalized Qualified Code(s): R10.84 - Generalized abdominal pain (2) Hepatomegaly Current Visit: Yes Status: Acute Assessment and plan: -Patient has hepatitis C with a history of alcohol abuse;imaging as above. -GI has been consulted and appreciate recommendations. (3) Macrocytic anemia Current Visit: Yes Status: Chronic Assessment and plan: -Hemoglobin stable; will continue to monitor. (4) Hepatitis C antibody positive in blood Current Visit: Yes Status: Acute Assessment and plan: -GI has been consulted and appreciate recommendations. (5) Transaminitis Current Visit: Yes Status: Acute Assessment and plan: -Patient with elevated transaminases. -GI consult as above. (6) History of alcohol abuse Current Visit: No Status: Chronic Assessment and plan: -Patient only reports of now drinking alcohol occasionally. - Subjective Interval history: Patient continues to complain of abdominal discomfort in addition to abdominal distention. She also reports that "my belly is leaking fluid." - Constitutional Vitals: Temp Pulse Resp BP Pulse Ox 97.4 F L 98 15 104/69 97 07/11/17 14:55 07/11/17 14:55 07/11/17 14:55 07/11/17 14:55 07/11/17 14:55 General appearance: Present: A&O X 3, answers questions appropriately - Respiratory Respiratory exam: Present: CTAB. Absent: accessory muscle use, rales, rhonchi, wheezes - Cardiovascular Cardiovascular exam: Present: RRR, +S1, +S2. Absent: diastolic murmur, gallop, rubs, systolic murmur - GI/Abdominal GI/Abdominal exam: Present: distended, soft, tenderness Internal Medicine: Result - Labs CBC & Chem 7: 07/10/17 05:47 07/10/17 05:47 - ABG Interpretation ABG results: PT/INR, D-dimer PT 17.5 Seconds (9.4-12.1) H 07/10/17 05:47 - Impressions Impressions Abdomen/Pelvis/Transvag US 07/11/17 00:00 IMPRESSION: Not enough fluid to perform paracentesis. D/ / 07/11/2017 14:49:21 Nicolette Hong MD / Lisbeth Ngo Interpreting Provider: Nicolette Hong MD Consult Discharge Plan - Plan Referrals: NONE,PCP [Primary Care Provider] -
[2017-07-11 17:01] LABS: Basophils % 0.3 %; Hematocrit 29.2 % (35.3-44.9); Hemoglobin 9.2 g/dL (11.5-15.4); Immature Granulocytes % 0.5 % (0-4); Lymphocytes # 1.2 K/mcL (0.6-4.6); Lymphocytes % 15.1 %; Mean Corpuscular HGB Conc 31.5 g/dL (31.6-35.5); Mean Platelet Volume 9.6 fL (9.4-12.4); Monocytes # 0.8 K/mcL (0.0-1.3); Neutrophils # 5.7 K/mcL (1.6-8.9); Platelet Count 193 K/mcL (140-400); Red Blood Count 2.63 M/mcL (3.82-4.97); Red Cell Distribution Width 15.1 % (11.5-14.5); Segmented Neutrophils % 74.1 %
[2017-07-11 17:14] LABS: Alanine Aminotransferase 23 Units/L (0-55); Albumin 1.9 g/dL (3.5-5.0); Albumin/Globulin Ratio 0.5 (1.1-2.2); Alkaline Phosphatase 156 Units/L (38-126); Aspartate Amino Transferase 228 Units/L (5-34); BUN/Creatinine Ratio 8 (6-26); Bilirubin,Total 2.1 mg/dL (0.2-1.2); Blood Urea Nitrogen 4 mg/dL (7-20); Calcium 7.2 mg/dL (8.6-10.8); Carbon Dioxide 22 mEq/L (19-29); Chloride 110 mEq/L (98-109); Glucose 95 mg/dL (70-99); Osmolality,Calculated 283 (280-300); Potassium 3.4 mEq/L (3.5-4.5); Sodium 138 mEq/L (136-145); Total Protein 5.9 g/dL (6.0-8.3); eGFR For African Americans > 60 (> 60); eGFR For Non-African Americans > 60 (> 60)
[2017-07-11 18:05] LABS: Hypochromasia Present (Not Present); Macrocytosis Present (Not Present); Platelet Estimate Normal (Normal)
--- NOTE | 2017-07-11 19:30 | Discharge Summary ---
Date of Encounter: 07/11/17 Time of Encounter: 10:00 - Discharge Diagnosis (1) Abdominal pain Priority: Primary Status: Acute Qualifiers: Abdominal location: generalized Qualified Code(s): R10.84 - Generalized abdominal pain (2) Hepatomegaly Priority: Primary Status: Acute (3) Macrocytic anemia Priority: Secondary Status: Chronic (4) Hepatitis C antibody positive in blood Priority: Primary Status: Acute (5) Transaminitis Priority: Secondary Status: Acute (6) History of alcohol abuse Priority: Secondary Status: Chronic - Discharge Medications Home Medications: No Known Home Drugs 07/09/17 [History] Allergies/Adverse Reactions: 3 Allergy/AdvReac Type Severity Reaction Status Date / Time No Known Allergies Allergy Verified 07/07/17 16:39 Procedures/tests Complete & Pending: Procedures Performed prior 72 hours Category Date Time Status IR US abdomen limited [IR] Routine Exams 07/11/17 Completed Date of admission: 07/09/17 17:14 Primary care physician: PCP NONE Consults: 07/09/17 17:26 Consult to Gastroenterology [CONS] Routine Consulting Provider: [facility] [place] Reason for Consult: cholecystitis, hepatomegaly Call Completed: Yes 07/09/17 19:13 Consult to Surgery [CONS] Routine Consulting Provider: [facility] Reason for Consult: ABD DISTENSION, cholecystitis Call Completed: Yes 07/10/17 17:05 Consult to Interventional Radiology [CONS] Routine Consulting Provider: Radiology Interventional [facility] Reason for Consult: Ascities Time Notified: 17:00 Call Completed: No - Patient Status Disposition: Transfer [facility] - Discharge Instructions Follow Up With: NONE,PCP [Primary Care Provider] - Hospital course: Ms. Fuentes is a 37 year old female - Time Spent with Patient Total time spent providing and/or coordinating discharge services: - Constitutional Vitals: Temp Pulse Resp BP Pulse Ox 97.4 F L 98 15 104/69 97 07/11/17 14:55 07/11/17 14:55 07/11/17 14:55 07/11/17 14:55 07/11/17 14:55 General appearance: Present: A&O X 3, answers questions appropriately
[2017-07-11 19:39] LABS: Acetaminophen < 1.0 mcg/mL (10-30)
[2017-07-11] MEDS: Albumin 25% 25gram/100mL 50 GM/200 ML IV.SOLN IVPB SCH ×2 (19:45→21:27)
[2017-07-11] MEDS ORDERED: Furosemide 40 MG/4 ML VIAL IVP ONE (19:54)
[2017-07-15 07:56] LABS: Ceruloplasmin 24 mg/dL (17-54)
[2017-07-15 09:20] LABS: ANA IgG by ELISA NONE DETECTED (None Detected); Immunoglobulin G Subclass 1 1110 mg/dL (240-1118); Immunoglobulin G Subclass 2 166 mg/dL (124-549); Immunoglobulin G Subclass 3 60 mg/dL (21-134); Immunoglobulin G Subclass 4 36 mg/dL (1-123); TSH Receptor Antibody <0.90 IU/L (<=1.75); Tissue Transglutaminase IgA 1 U/mL (0-3)
[2017-07-15 09:21] LABS: Immunoglobulin A (CELIAC) 636 mg/dL (68-408); Smooth Muscle Ab Titer IgG 1:20 (<1:20)
[2017-07-16 16:12] LABS: A1A SZ Specimen WHOLE BLOOD; Alpha-1-Antitrypsin S Allele NEGATIVE; Alpha-1-Antitrypsin Z Allele NEGATIVE
[2017-07-17 08:15] LABS: Alpha-1-Antitrypsin 173 mg/dL (90-200)
== END 2017-07-11 22:00 | disposition critical access hospital (66) | DRG 251 ==
LOC: EMEROO 08:54 → 3ANU 08:54
PROVIDERS: ADMIT Family Medicine; ATTEND Hospitalist